=== PATIENT | female | born 1955 | race Caucasian/White ===

== ENCOUNTER 2020-11-21 10:54 | Outpatient (REF) | payer MEDICARE, SELFPAY ==
[2020-11-21 11:49] LABS: Estimated Average Glucose 137 mg/dL; Hemoglobin A1c % 6.4 %
[2020-11-21 12:21] LABS: Alanine Aminotransferase 14 U/L (0-31); Albumin Level 4.1 g/dL (3.5-5.0); Alkaline Phosphatase 83 U/L (39-117); Aspartate Amino Transferase 17 U/L (5-31); Bilirubin Direct 0.2 mg/dL (0.0-0.5); Bilirubin Total 0.4 mg/dL (0.0-1.0); Cholesterol 166 mg/dL; Glucose Fasting 141 mg/dL (60-99); HDL Cholesterol 49 mg/dL; LDL Cholesterol Calculated 89 mg/dl; Total Protein 6.9 g/dL (6.5-8.0); Triglycerides 144 mg/dL
[2020-11-21 12:37] LABS: Reflex LDLD? No
== END 2020-11-21 10:55 | disposition home or self-care (01) ==
LOC: HO.LNP 10:54
PROVIDERS: PCP Internal Medicine; Visit Provider Internal Medicine
DX: R73.03 Prediabetes (principal); E78.00 Pure hypercholesterolemia, unspecified
CPT/HCPCS: 80061; 80076; 82947; 83036

== ENCOUNTER 2020-12-29 10:25 | Outpatient (REF) | payer MEDICARE, SELFPAY ==
[2020-12-29 11:23] LABS: Potassium 3.9 mmol/L (3.3-5.1)
== END 2020-12-29 10:26 | disposition home or self-care (01) ==
LOC: HO.LNP 10:25
PROVIDERS: Visit Provider Internal Medicine
DX: E87.6 Hypokalemia (principal); I10 Essential (primary) hypertension; Z79.899 Other long term (current) drug therapy
CPT/HCPCS: 84132

== ENCOUNTER 2021-05-22 10:33 | Outpatient (REF) | payer MEDICARE, SELFPAY ==
[2021-05-22 11:15] LABS: MANUAL DIFF FLAG NO
[2021-05-22 11:24] LABS: Basophils Percent Auto 0.7 % (0-2); Eosinophils Absolute Auto 0.2 X10*3/uL (0.0-0.4); Eosinophils Percent Auto 3.9 % (0-4); Hematocrit 40.9 % (37-47); Hemoglobin 13.5 g/dl (12.0-16.0); Imm Gran Abs Auto 0.01 X10*3/uL (0.00-0.03); Imm Gran Pct Auto 0.2 % (0.0-0.4); Lymphocytes Absolute Auto 1.5 X10*3/uL (1.2-4.9); Lymphocytes Percent Auto 23.8 % (20-40); Mean Corpuscular Hemoglobin 29.3 pg (27.0-33.0); Mean Corpuscular Volume 88.7 fL (80-98); Mean Platelet Volume 10.3 fL (9.4-12.3); Monocytes Absolute Auto 0.6 X10*3/uL (0.1-1.2); Monocytes Percent Auto 9.9 % (2-11); Neutrophils Absolute Auto 3.7 X10*3/uL (2.0-8.3); Neutrophils Percent Auto 61.5 % (45-73); Platelet Count 286 X10*3/uL (160-400); Red Blood Count 4.61 X10*6/uL (4.20-5.50); Red Cell Distribution Width 12.9 % (11.0-16.0); White Blood Count 6.1 X10*3/uL (4.8-10.8)
[2021-05-22 12:08] LABS: Appearance Urine CLOUDY; Color Urine YELLOW; Glucose Urine UA NEG (NEG); Leukocyte Esterase Urine 3+ (NEG); Nitrite Urine NEG (NEG); Specific Gravity - Urine 1.015 (1.005-1.025); Urine Blood TRACE (NEG); Urine Ketones NEG (NEG); Urine Protein NEG (NEG-TRACE)
[2021-05-22 12:42] LABS: Creatinine Urine 94.73 mg/dL; Microalbum/Creatinine Ratio Ur 22.1 ug/mg cr
[2021-05-22 12:59] LABS: Estimated Average Glucose 166 mg/dL; Hemoglobin A1c % 7.4 %
[2021-05-22 13:40] LABS: Bacteria Urine 1+ /LPF; Mucus Urine 2+ /LPF; Squamous Epithelial Cell Urine 2+ /LPF; WBC Urine 30-49 /HPF (0-4)
[2021-05-22 14:36] LABS: Vitamin D 25-OH Total 37.7 ng/mL (>30)
[2021-05-22 14:37] LABS: Alanine Aminotransferase 18 U/L (0-31); Alkaline Phosphatase 92 U/L (39-117); Anion Gap 13 (12-20); Aspartate Amino Transferase 18 U/L (5-31); Bilirubin Total 0.3 mg/dL (0.0-1.0); Blood Urea Nitrogen 17 mg/dL (9-16); Calcium 9.9 mg/dL (8.4-10.2); Carbon Dioxide 27 mmol/L (22-29); Chloride 103 mmol/L (96-108); Cholesterol 155 mg/dL; Estimated Glomerular Filt Rate > 60; Glucose Fasting 172 mg/dL (60-99); HDL Cholesterol 42 mg/dL; LDL Cholesterol Calculated 79 mg/dl; Potassium 3.8 mmol/L (3.3-5.1); Sodium 139 mmol/L (135-145); Total Protein 6.8 g/dL (6.5-8.0); Triglycerides 174 mg/dL
[2021-05-22 15:03] LABS: Reflex LDLD? No
== END 2021-05-22 10:34 | disposition home or self-care (01) ==
LOC: HO.LNP 10:33
PROVIDERS: Visit Provider Internal Medicine
DX: Z00.00 Encounter for general adult medical examination without abnormal findings (principal); E78.00 Pure hypercholesterolemia, unspecified; R73.03 Prediabetes; I10 Essential (primary) hypertension; E55.9 Vitamin D deficiency, unspecified; E87.6 Hypokalemia
CPT/HCPCS: 80053; 80061; 81001; 81003; 82043; 82306; 83036; 85025

== ENCOUNTER 2021-11-20 11:06 | Outpatient (REF) | payer MEDICARE, SELFPAY ==
[2021-11-20 12:37] LABS: Alanine Aminotransferase 20 U/L (0-31); Albumin Level 4.2 g/dL (3.5-5.0); Alkaline Phosphatase 80 U/L (39-117); Aspartate Amino Transferase 19 U/L (5-31); Bilirubin Direct 0.2 mg/dL (0.0-0.5); Bilirubin Total 0.6 mg/dL (0.0-1.0); Cholesterol 156 mg/dL; HDL Cholesterol 35 mg/dL; LDL Cholesterol Calculated 67 mg/dl; Total Protein 7.3 g/dL (6.5-8.0); Triglycerides 270 mg/dL
[2021-11-20 13:13] LABS: Reflex LDLD? No
== END 2021-11-20 11:07 | disposition home or self-care (01) ==
LOC: HO.LNP 11:06
PROVIDERS: Visit Provider Internal Medicine
DX: E78.00 Pure hypercholesterolemia, unspecified (principal); I10 Essential (primary) hypertension
CPT/HCPCS: 80061; 80076

== ENCOUNTER 2022-05-25 10:51 | Outpatient (REF) | payer MEDICARE, SELFPAY ==
[2022-05-25 11:00] LABS: MANUAL DIFF FLAG NO
[2022-05-25 11:41] LABS: Basophils Absolute Auto 0.1 X10*3/uL (0.0-0.2); Basophils Percent Auto 0.9 % (0-2); Eosinophils Absolute Auto 0.2 X10*3/uL (0.0-0.4); Eosinophils Percent Auto 2.6 % (0-4); Hematocrit 41.4 % (37.0-47.0); Hemoglobin 13.6 g/dl (12.0-16.0); Imm Gran Abs Auto 0.01 X10*3/uL (0.00-0.03); Imm Gran Pct Auto 0.1 % (0.0-0.4); Lymphocytes Absolute Auto 1.9 X10*3/uL (1.2-4.9); Lymphocytes Percent Auto 27.4 % (20-40); Mean Corpuscular HGB Conc 32.9 g/dl (31.0-35.0); Mean Corpuscular Hemoglobin 29.1 pg (27.0-33.0); Mean Corpuscular Volume 88.7 fL (80.0-98.0); Mean Platelet Volume 9.9 fL (9.4-12.3); Monocytes Absolute Auto 0.5 X10*3/uL (0.1-1.2); Monocytes Percent Auto 7.7 % (2-11); Neutrophils Absolute Auto 4.3 x10*3/uL (2.0-8.3); Neutrophils Percent Auto 61.3 % (45-73); Platelet Count 314 X10*3/uL (160-400); Red Blood Count 4.67 X10*6/uL (4.20-5.50); Red Cell Distribution Width 12.8 % (11.0-16.0)
[2022-05-25 11:42] LABS: Appearance Urine Clear; Color Urine Yellow; Glucose Urine UA Negative (Negative); Leukocyte Esterase Urine Large (3+) (Negative); Nitrite Urine Negative (Negative); PH 6.5 (5.0-9.0); UMIC TRIGGER UA YES; Urine Blood Negative (Negative); Urine Ketones Negative (Negative); Urine Protein Negative (Neg-Trace)
[2022-05-25 11:48] LABS: Bacteria Urine 2+ (None Seen); Hyaline Casts Urine 0-2 /LPF (0-2); RBC Urine 0-2 /HPF (0-2)
[2022-05-25 11:51] LABS: Estimated Average Glucose 160 mg/dL; Hemoglobin A1c % 7.2 %
[2022-05-25 11:52] LABS: Alanine Aminotransferase 25 U/L (0-31); Albumin Level 4.2 g/dL (3.5-5.0); Alkaline Phosphatase 71 U/L (39-117); Anion Gap 18 (12-20); Aspartate Amino Transferase 22 U/L (5-31); Bilirubin Total 0.5 mg/dL (0.0-1.0); Blood Urea Nitrogen 18 mg/dL (9-16); Calcium 9.7 mg/dL (8.4-10.2); Carbon Dioxide 26 mmol/L (22-29); Chloride 100 mmol/L (96-108); Cholesterol 160 mg/dL; Estimated Glomerular Filt Rate > 60; Glucose Fasting 162 mg/dL (60-99); HDL Cholesterol 40 mg/dL; LDL Cholesterol Calculated 87 mg/dl; Potassium 3.7 mmol/L (3.3-5.1); Sodium 140 mmol/L (135-145); Total Protein 7.1 g/dL (6.5-8.0); Triglycerides 165 mg/dL
[2022-05-25 12:11] LABS: Creatinine Urine 53.59 mg/dL
== END 2022-05-25 10:52 | disposition home or self-care (01) ==
LOC: HO.LNP 10:51
PROVIDERS: Visit Provider Internal Medicine
DX: Z00.00 Encounter for general adult medical examination without abnormal findings (principal); E78.00 Pure hypercholesterolemia, unspecified; I10 Essential (primary) hypertension; E55.9 Vitamin D deficiency, unspecified; E11.9 Type 2 diabetes mellitus without complications; E87.6 Hypokalemia
CPT/HCPCS: 80053; 80061; 81001; 81003; 82043; 82306; 83036; 85025

== ENCOUNTER 2022-11-23 11:10 | Outpatient (REF) | payer MEDICARE, SELFPAY ==
[2022-11-23 12:08] LABS: Alanine Aminotransferase 19 U/L (0-31); Albumin Level 4.2 g/dL (3.5-5.0); Alkaline Phosphatase 71 U/L (39-117); Aspartate Amino Transferase 21 U/L (5-31); Bilirubin Direct 0.2 mg/dL (0.0-0.5); Bilirubin Total 0.5 mg/dL (0.0-1.0); Cholesterol 148 mg/dL; Glucose Fasting 148 mg/dL (60-99); HDL Cholesterol 40 mg/dL; LDL Cholesterol Calculated 76 mg/dl; Total Protein 6.9 g/dL (6.5-8.0); Triglycerides 162 mg/dL
[2022-11-23 19:45] LABS: Reflex LDLD? No
== END 2022-11-23 11:11 | disposition home or self-care (01) ==
LOC: HO.LNP 11:10
PROVIDERS: Visit Provider Internal Medicine
DX: Z13.89 Encounter for screening for other disorder (principal)
CPT/HCPCS: 80061; 80076; 82947

== ENCOUNTER 2023-07-08 10:46 | Outpatient (REF) | payer MEDICARE, SELFPAY ==
[2023-07-08 10:51] LABS: MANUAL DIFF FLAG NO
[2023-07-08 12:17] LABS: Basophils Percent Auto 0.7 % (0-2); Eosinophils Absolute Auto 0.1 X10*3/uL (0.0-0.4); Eosinophils Percent Auto 1.8 % (0-4); Hematocrit 41.2 % (37.0-47.0); Hemoglobin 13.5 g/dl (12.0-16.0); Imm Gran Abs Auto 0.02 X10*3/uL (0.00-0.03); Imm Gran Pct Auto 0.3 % (0.0-0.4); Lymphocytes Absolute Auto 1.6 X10*3/uL (1.2-4.9); Lymphocytes Percent Auto 26.8 % (20-40); Mean Corpuscular HGB Conc 32.8 g/dl (31.0-35.0); Mean Corpuscular Hemoglobin 29.5 pg (27.0-33.0); Mean Platelet Volume 9.9 fL (9.4-12.3); Monocytes Absolute Auto 0.4 X10*3/uL (0.1-1.2); Monocytes Percent Auto 6.7 % (2-11); Neutrophils Absolute Auto 3.9 x10*3/uL (2.0-8.3); Neutrophils Percent Auto 63.7 % (45-73); Platelet Count 342 X10*3/uL (160-400); Red Blood Count 4.58 X10*6/uL (4.20-5.50); Red Cell Distribution Width 12.7 % (11.0-16.0); White Blood Count 6.1 X10*3/uL (4.8-10.8)
[2023-07-08 12:20] LABS: Appearance Urine Clear; Color Urine Yellow; Glucose Urine UA Negative (Negative); Leukocyte Esterase Urine Large (3+) (Negative); Nitrite Urine Negative (Negative); Specific Gravity - Urine 1.015 (1.005-1.025); UMIC TRIGGER UACC YES; Urine Blood Negative (Negative); Urine Ketones Negative (Negative); Urine Protein Negative (Neg-Trace)
[2023-07-08 12:23] LABS: Bacteria Urine 1+ (None Seen); Hyaline Casts Urine 0-2 /LPF (0-2); RBC Urine 0-2 /HPF (0-2); UACC Culture Trigger YES; WBC Urine 21-50 /HPF (0-5)
[2023-07-08 12:31] LABS: Estimated Average Glucose 146 mg/dL; Hemoglobin A1C 149.9488 umol/L; Hemoglobin A1c % 6.7 % (<6.0)
[2023-07-08 12:50] LABS: Alanine Aminotransferase 16 U/L (0-31); Albumin Level 4.2 g/dL (3.5-5.0); Alkaline Phosphatase 62 U/L (39-117); Anion Gap 15 (12-20); Aspartate Amino Transferase 21 U/L (5-31); Bilirubin Total 0.3 mg/dL (0.0-1.0); Blood Urea Nitrogen 14 mg/dL (9-16); Calcium 9.6 mg/dL (8.4-10.2); Carbon Dioxide 27 mmol/L (22-29); Chloride 101 mmol/L (96-108); Cholesterol 144 mg/dL (<200); Estimated Glomerular Filt Rate > 60; Glucose Fasting 147 mg/dL (60-99); HDL Cholesterol 42 mg/dL (>40); LDL Cholesterol Calculated 76 mg/dL (<100); Potassium 3.8 mmol/L (3.3-5.1); Sodium 139 mmol/L (135-145); Total Protein 7.3 g/dL (6.5-8.0); Triglycerides 132 mg/dL (<150); Vitamin D 25-OH Total 52.7 ng/mL (>30)
[2023-07-08 12:55] LABS: Creatinine Urine 72.22 mg/dL; Microalbum/Creatinine Ratio Ur 31.8 ug/mg cr (<30)
== END 2023-07-08 10:47 | disposition home or self-care (01) ==
LOC: HO.LNP 10:46
PROVIDERS: Visit Provider Internal Medicine
DX: Z00.00 Encounter for general adult medical examination without abnormal findings (principal); E78.00 Pure hypercholesterolemia, unspecified; E55.9 Vitamin D deficiency, unspecified; E11.9 Type 2 diabetes mellitus without complications; I10 Essential (primary) hypertension; R82.90 Unspecified abnormal findings in urine
CPT/HCPCS: 80053; 80061; 81001; 82043; 82306; 82570; 83036; 85025; 87086

== ENCOUNTER 2024-01-09 11:52 | Outpatient (REF) | payer MEDICARE, SELFPAY ==
[2024-01-09 12:37] LABS: Estimated Average Glucose 157 mg/dL; Hemoglobin A1c % 7.1 % (<6.0)
[2024-01-09 12:42] LABS: Alanine Aminotransferase 15 U/L (0-31); Albumin Level 4.1 g/dL (3.5-5.0); Alkaline Phosphatase 63 U/L (39-117); Aspartate Amino Transferase 19 U/L (5-31); Bilirubin Direct 0.3 mg/dL (0.0-0.5); Bilirubin Total 0.4 mg/dL (0.0-1.0); Cholesterol 143 mg/dL (<200); Glucose Fasting 146 mg/dL (60-99); HDL Cholesterol 44 mg/dL (>40); LDL Cholesterol Calculated 73 mg/dL (<100); Total Protein 7.3 g/dL (6.5-8.0); Triglycerides 133 mg/dL (<150)
[2024-01-09 12:57] LABS: Reflex LDLD? No
== END 2024-01-09 11:53 | disposition home or self-care (01) ==
LOC: HO.LNP 11:52
PROVIDERS: Visit Provider Internal Medicine
DX: E11.9 Type 2 diabetes mellitus without complications (principal); E78.00 Pure hypercholesterolemia, unspecified
CPT/HCPCS: 80061; 80076; 82947; 83036

== ENCOUNTER 2024-07-14 11:57 | Outpatient (REF) | payer MEDICARE, SELFPAY ==
[2024-07-14 12:06] LABS: MANUAL DIFF FLAG NO
[2024-07-14 12:36] LABS: Appearance Urine Clear; Basophils Absolute Auto 0.1 X10*3/uL (0.0-0.2); Basophils Percent Auto 0.8 % (0-2); Color Urine Yellow; Eosinophils Absolute Auto 0.2 X10*3/uL (0.0-0.4); Eosinophils Percent Auto 2.7 % (0-4); Glucose Urine UA Negative (Negative); Hematocrit 38.5 % (37.0-47.0); Hemoglobin 12.7 g/dl (12.0-16.0); Imm Gran Abs Auto 0.01 X10*3/uL (0.00-0.03); Imm Gran Pct Auto 0.2 % (0.0-0.4); Leukocyte Esterase Urine Moderate (2+) (Negative); Lymphocytes Absolute Auto 1.8 X10*3/uL (1.2-4.9); Lymphocytes Percent Auto 27.4 % (20-40); Mean Corpuscular Hemoglobin 29.2 pg (27.0-33.0); Mean Corpuscular Volume 88.5 fL (80.0-98.0); Monocytes Absolute Auto 0.5 X10*3/uL (0.1-1.2); Monocytes Percent Auto 8.2 % (2-11); Neutrophils Percent Auto 60.7 % (45-73); Nitrite Urine Negative (Negative); Platelet Count 317 X10*3/uL (160-400); Red Blood Count 4.35 X10*6/uL (4.20-5.50); Red Cell Distribution Width 12.6 % (11.0-16.0); Specific Gravity - Urine 1.015 (1.005-1.025); UMIC TRIGGER UACC YES; Urine Blood Negative (Negative); Urine Ketones Negative (Negative); Urine Protein Negative (Neg-Trace); White Blood Count 6.6 X10*3/uL (4.8-10.8)
[2024-07-14 12:45] LABS: Estimated Average Glucose 166 mg/dL; Hemoglobin A1C 193.8343 umol/L; Hemoglobin A1c % 7.4 % (<6.0); Total Hemoglobin (HGBA1C) 3383.3437 umol/L
[2024-07-14 12:46] LABS: Bacteria Urine 1+ (None Seen); Hyaline Casts Urine 0-2 /LPF (0-2); RBC Urine 0-2 /HPF (0-2); WBC Urine 0-5 /HPF (0-5)
[2024-07-14 12:47] LABS: Alanine Aminotransferase 17 U/L (0-31); Albumin Level 4.2 g/dL (3.5-5.0); Alkaline Phosphatase 70 U/L (39-117); Anion Gap 15 (12-20); Aspartate Amino Transferase 29 U/L (5-31); Bilirubin Total 0.3 mg/dL (0.0-1.0); Blood Urea Nitrogen 19 mg/dL (9-16); Calcium 9.9 mg/dL (8.4-10.2); Carbon Dioxide 27 mmol/L (22-29); Chloride 99 mmol/L (96-108); Cholesterol 147 mg/dL (<200); Estimated Glomerular Filt Rate > 60; Glucose Fasting 160 mg/dL (60-99); HDL Cholesterol 41 mg/dL (>40); LDL Cholesterol Calculated 72 mg/dL (<100); Potassium 3.3 mmol/L (3.3-5.1); Sodium 138 mmol/L (135-145); Total Protein 7.2 g/dL (6.5-8.0); Triglycerides 173 mg/dL (<150)
[2024-07-14 13:26] LABS: Creatinine Urine 81.82 mg/dL; Microalbum/Creatinine Ratio Ur 14.6 ug/mg cr (<30)
[2024-07-19 07:13] LABS: VITAMIN D (1,25 OH) D3 28 pg/mL; Vit D (1,25-Dihydroxy) Total 28 pg/mL (18-72); Vitamin D (1,25 OH) D2 <8 pg/mL
== END 2024-07-14 11:58 | disposition home or self-care (01) ==
LOC: HO.LNP 11:57
PROVIDERS: Visit Provider Internal Medicine
DX: E78.00 Pure hypercholesterolemia, unspecified (principal); E55.9 Vitamin D deficiency, unspecified; I10 Essential (primary) hypertension; E11.9 Type 2 diabetes mellitus without complications; E87.6 Hypokalemia
CPT/HCPCS: 80053; 80061; 81001; 82043; 82570; 82652; 83036; 85025

== ENCOUNTER 2025-01-11 12:19 | Outpatient (REF) | payer MEDICARE, SELFPAY ==
--- OUTSIDE RECORDS SUMMARY | 2025-01-11 12:47 | XMS_ITS ---
Author Organization Anthony Rivera MD Address [address] [place] [phone] Care Team Providers Care Pipe Fitter Name Role Phone Anthony Rivera Primary Care Provider [phone] Allergies Allergen (clinical drug ingredient) Drug/Non Drug [...] Rivera MD [address] [place], [place] [phone] 07/20/2024 Anthony Rivera Essential hypertension I10 ; [...] 6 Months, Reason: dm Provider Name:Anthony moeller, 01/18/2025 10:00:00 AM, [address], [address], [place], [place], [phone], Provider Name:Anthony Tapia ier, 07/16/2025 07:30:00 AM, [address] [facility], [address], [place], [place], [phone], Provider Name:Anthony Tapia janeyr, 07/23/2025 11:00:00 AM, [facility], [address], [place], [phone], Progress Notes * NEAL SYLVESTERDOB:1955 ( 68 yo F)Acc No.[id number]:07/20/2024 Progress Notes Patient:?NEAL SYLVESTER Provider:?Anthony Rivera MD :1955???Age:68 Y???Sex:Female D ate:07/20/2024 Address:[address] [place] [address] Subjective: * Chief Complaints: * ???ANNUAL EXAMC/o right hip pain * HPI: ???Depression Screening:?PHQ-9?Little interest or pleasure in doing things?Not at all,?Feeling down, depressed, or hopeless?Not at all,?Trouble falling or staying asleep, or sleeping too much?Not at all,?Feeling tired or having little energy?Not at all,?Poor appetite or overeating?Not at all,?Feeling bad about yourself or that you are a failure, or have let yourself or your family down?Not at all,?Trouble concentrating on things, such as reading the newspaper or watching television?Not at all,?Moving or speaking so slowly that other people could have noticed; or the opposite, being so fidgety or restless that you have been moving around a lot more than usual?Not at all,?Thoughts that you would be better off or of hurting yourself in some way?Not at all,?Total Score?0.?Communication Needs:?Communication Needs?Does the patient have a hearing impairment?No,?Does the patient have a vision impairment??Yes,?If yes, what is the vision impairment??Glasses,?Does the patient have a cognition impairment??No.?Fall Risk:?History?Have you had any falls with injury in the past year??No,?Have you had two or more falls in the past year??No.?SDOH Questions:?SDOH Questions?In the past year have you been worried about losing housing??No,?In the past year have you or any family members you live with been unable to get any of the following when it was really needed? Check all that apply:?None.?Symptom(s):? patient is a 68 yo female here for annual visit with review of recent labs and follow up of chronc issues, has some pain in right hip. * ROS:?General/Constitutional:?Change in appetite?denies.?Chills?denies.?Fever?denies.?Ophthalmologic:?Blurred vision?denies.?Discharge?denies.?Pain?denies.?ENT:?Decreased hearing?denies.?Sore throat?denies.?Swollen glands?denies.?Endocrine:?Cold intolerance?denies.?Excessive thirst?denies.?Heat intolerance?denies.?Weight loss?denies.?Respiratory:?Cough?denies.?Shortness of breath at rest?denies.?Shortness of breath with exertion?denies.?Wheezing?denies.?Cardiovascular:?Chest pain at rest?denies.?Chest pain with exertion?denies.?Irregular heartbeat?denies.?Shortness of breath?denies.?Gastrointestinal:?Abdominal pain?denies.?Change in bowel habits?denies.?Diarrhea?denies.?Nausea?denies.?Rectal bleeding?denies.?Vomiting?denies .?Genitourinary:?Blood in urine?denies.?Difficulty urinating?denies.?Frequent urination?denies.?Urinary incontinence?Denies.?Musculoskeletal:?Painful joints?denies.?Weakness?denies.?Skin:?Dry skin?denies.?Itching?denies.?Denies?Mole(s),? changes in moles, new moles or any lesions of concern.?Denies?Photosensitivity.?Rash?denies.?Neurologic:?Dizziness?denies.?Fainting?denies.?Headache?denies.? * Medical History:? * Surgical History:? * Hospitalization/Major Diagno stic Procedure:? * Family History:?Father: dece ased 48 yrs, diagnosed with Cancer.?Mother: 93 yrs, diagnosed with Hypertension.?1 sister(s) - healthy. 2 daughter(s) . .? Father- Colon Cancer Mother- natural causes, Denies mental health/substance abuse family history, No pertinent family medical history, Denies mental health/substance abuse family history, No pertinent family medical history. * Social History:?Tobacco Use:?Tobacco Use/Smoking?Patient is a?nonsmoker,?Additional Findings: Tobacco Non-User?Current non-smoker, currently using no form of tobacco.?Drugs/Alcohol:?Alcohol Screen?Did you have a drink containing alcohol in the past year??No,?Points?0,?Interpretation?Negative.?Miscellaneous:?Caffeine: yes, frequency: 1 tea in am. Children: yes. Community involvements: yes, belongs to worship group. no Exercise. Housing: owning. Living with: spouse. Marital status: . Occupation: retired. Pets: cats: x2. no Travel outside of the [place]. * Medications:?TakingLatanopro st 0.005 % Solution 1 drop into affected [...] TABLET TWICE DAILY WITH MEALS Losartan Potassium-HCTZ 100- 25 MG Tablet TAKE 1 TABLET ONCE DAILY [...] reviewed and reconciled with the patient * Allergies:?Amoxicillin: diar trevor - Side EffectsPenicillin G Sodium: diarrhea - Side EffectsLisinopril: cough - Side Effectsyes[Allergies Verified] Objective: * Vitals:?Ht: 62.5, Wt:151, BM I:27.18, BP:122/70 weight is up 6 pounds since 01-14-24. * ???Past Orders: ???Lab:Comprehensive [place]. P chet Fast (Order Date - 07/14/2024) (Collection Date - 07/14/2024) ? Value Reference Range ?Sodium 138 135-145 - mmo l/L ?Bilirubin Total 0.3 0.0- 1.0 - mg/dL ?Aspartate Amino Transferase 29 5-31 - U/L ?Alanine Aminotransferase 17 0-31 - U/L ?Total Protein 7.2 6.5-8. 0 - g/dL ?Albumin Level 4.2 3.5-5. 0 - g/dL ?Alkaline Phosphatase 70 39-117 - U/L ?Potassium 3.3 3.3-5.1 - mmol/L ?Chloride 99 96-108 - mm ol/L ?Carbon Dioxide 27 22-29 - mmol/L ?Anion Gap 15 12-20 - ?Blood Urea Nitrogen 19 H 9-16 - mg/dL ?Creatinine 0.78 0.5-1.4 - mg/dL ?Estimated Glomerular Filt Rate > 60 - ?Glucose Fasting 160 H 60-9 9 - mg/dL ?Calcium 9.9 8.4-10.2 - m g/dL ???Lab:Lipid Panel (Order Da 07/14/2024) (Collection Date - 07/14/2024) ? Value Reference Range ?Triglycerides 173 H <150 - mg/dL ?Cholesterol 147 <200 - m g/dL ?LDL Cholesterol Calculated 72 <100 - mg/dL ?HDL Cholesterol 41 >40 - mg/dL ???Lab:Hemoglobin A1c (Order Date - 07/14/2024) (Collection Date - 07/14/2024) ? Value Reference Range ?Hemoglobin A1c % 7.4 H <6. 0 - % ?Estimated Average Glucose 166 - mg/dL ???Lab:Microalbumin, Random (Order 07/14/2024) (Collection Date - 07/14/2024) ? Value Reference Range ?Creatinine Urine 81.82 - m g/dL ?Microalbumin Urine 12.0 - mg/L ?Microalbum Creatinin e Ratio Ur 14.6 <30 - ug/mg cr ???Lab:UA ClnCatch+Micro w/r flx Cult (Order Date - 07/14/2024) (Collection Date - 07/14/2024) ? Value Reference Range ?Color Urine Yellow - ?Appearance Urine Clear - ?PH 6.0 5.0-9.0 - ?Glucose Urine UA Negative Neg ative - mg/dL ?Urine Blood Negative Negative - ?Specific [place] - Urine 1.015 1.005-1.025 - ?Urine Protein Negative Neg-Tr hugh - mg/dL ?Urine Ketones Negative Negati ve - mg/dL ?Nitrite Urine Negative Negati ve - ?Leukocyte Esterase Urine Moderate (2+) A Negative - ?RBC Urine 0-2 0-2 - /HPF ?WBC Urine 0-5 0-5 - /HPF ?Squamous Epithelial Cell Urine 3-5 0-2 - /HPF ?Bacteria Urine 1+ None Seen - ?Hyaline Casts Urine 0-2 0-2 - /LPF ???Lab:Complete Blood Count Auto Diff (Order Date - 07/14/2024) (Collection Date - 07/14/2024) ? Value Reference Range ?White Blood Count 6.6 4. 8-10.8 - X10*3/uL ?Red Blood Count 4.35 4.20 -5.50 - X10*6/uL ?Hemoglobin 12.7 12.0-16.0 - g/dl ?Hematocrit 38.5 37.0-47.0 - % ?Mean Corpuscular Volume 88.5 80.0-98.0 - fL ?Mean Corpuscular Hemoglobin 29.2 27.0-33.0 - pg ?Mean Corpuscular HGB Conc 33.0 31.0-35.0 - g/dl ?Red Cell Distributio n Width 12.6 11.0-16.0 - % ?Platelet Count 317 160-4 00 - X10*3/uL ?Mean Platelet Volume 10.0 9.4-12.3 - fL ?Neutrophils Percent Auto 60.7 45-73 - % ?Imm Gran Pct Auto 0.2 0. 0-0.4 - % ?Lymphocytes Percent Auto 27.4 20-40 - % ?Monocytes Percent Auto 8.2 2-11 - % ?Eosinophils Percent Auto 2.7 0-4 - % ?Basophils Percent Auto 0.8 0-2 - % ?NRBC Pct Auto 0.0 0.0-0. 2 - /100WBC ?Neutrophils Absolute Auto 4.0 2.0-8.3 - x10*3/uL ?Imm Gran Abs Auto 0.01 0. 00-0.03 - X10*3/uL ?Lymphocytes Absolute Auto 1.8 1.2-4.9 - X10*3/uL ?Monocytes Absolute Auto 0.5 0.1-1.2 - X10*3/uL ?Eosinophils Absolute Auto 0.2 0.0-0.4 - X10*3/uL ?Basophils Absolute Auto 0.1 0.0-0.2 - X10*3/uL ?NRBC Abs Auto 0.000 0.0-0. 012 - X10*3/uL * Examination: ???General Examination: ?GENERAL APPEARANCE:?well developed, well nourished, in no acute distress.?HEAD:?normocephalic, atraumatic.?EYES:?pupils equal, round, reactive to light and accommodation, sclera non-icteric.?EARS:?normal.?ORAL CAVITY:?mucosa moist.?THROAT:?clear.?NECK/THYROID:?neck supple, full range of motion, no cervical lymphadenopathy, no bruits.?SKIN:?warm and dry, no suspicious lesions.?HEART:?regular rate and rhythm, S1, S2 normal, no murmurs.?LUNGS:?clear to auscultation bilaterally.?BREASTS:?done by cyberathlete.?ABDOMEN:?soft, nontender, nondistended, bowel sounds present, normal, no organomegaly , no masses palpable.?RECTAL EXAM:?done by cyberathlete.?FEMALE GENITOURINARY:?done by cyberathlete.?EXTREMITIES:?no clubbing, cyanosis, or edema.?NEUROLOGIC:?nonfocal, motor strength normal upper and lower extremities, sensory exam intact.? Assessment: * Assessment: 1.?Annual physical exam - Z0 0.00 (Primary)?2.?Essential hypertension - I10?3.?Type 2 diabetes mellitus without complication, with no history of insulin use - E11.9?4.?Vitamin D deficiency - E55.9?5.?Depression screening - Z13.31? Plan: * Treatment: 2.?Essential hypertension? Notes: bp doing well today, will continue current regiment and will continue to monitor?? 3.?Type 2 diabetes mellitus without complication, with no history of insulin use? Notes: a1c is going up due to eating poorly, will continue to monitor?? 4.?Vitamin D deficiency? Notes: is doing well but is going to start vit d since winter is here?? 5.?Depression screening? Notes: negative screen?? * Procedure Codes:? * Follow Up:?6 Months (Reason: dm) * * Sign off status: Completed true * Provider:?Anthony Rivera MD Date:?09/19/2023 Generated for Hill veronica/Valentino/Lexiransmitting on:?01/11/2025 12:46 PM EDT History and Physical Notes * HPI (History [...] patient have a vision impairmen t?: Yes ?If yes, what is the vision impairment?: Glasses Does the patient have a cognition impair ment?: No Examination Category Sub-Category Detail Notes Category Not es General Examination GENERAL APPEARANCE: well dev eloped, well nourished, in no acute distress HEAD: normocephalic, atrau matic EYES: pupils equal, round, reactive to light and accommodation, sclera non- icteric EARS: normal THROAT: clear NECK/THYROID: neck supple, [...] cyanosi s, or edema BREASTS: done by cyberathlete RECTAL EXAM: done by cyberathlete FEMALE GENITOURINARY: done by cyberathlete ORAL CAVITY: mucosa moist
--- OUTSIDE RECORDS SUMMARY | 2025-01-11 12:47 | XMS_ITS ---
Author Organization Anthony Rivera MD Address [address] [place] [phone] Care Team Providers Care Audio Visual Specialist Name Role Phone Anthony Rivera Primary Care Provider REASON FOR VISIT FASTING LIPIDS Encounters Encounter Location Date Provider Diagnosis Anthony Rivera MD [address] [place] [phone] 01/11/2025 Anthony Rivera Hypercholesteremia E 78.00 and Type 2 diabetes mellitus without complication, with no history of insulin use E11.9 Assessments Encounter Date Diagnosis (ICD Code) Assessment Notes Treatment Notes Treatment Clinical Notes Section Notes 01/11/2025 Hypercholesteremia (ICD-10 - E78.00) 01/11/2025 Type 2 diabetes mellitus without complication, with no history of insulin use (ICD-10 - E11.9) Plan Of Treatment Pending Test Test Name Order Date Liver Panel 01/11/2025 Glucose Fasting 01/11/2025 Lipid Panel with Reflex 01/11/2025 Hemoglobin A1c 01/11/2025 Next Appt Details Provider Name:Anthony moeller, 01/18/2025 10:00:00 AM, [address] [place] [address], [address] [place] [address], [phone], Provider Name:Anthony moeller, 07/16/2025 07:30:00 AM, [address], [address], [place], [place], [phone], Provider Name:Anthony Weiner Willei ier, 07/23/2025 11:00:00 AM, [address] [facility], [address], [place], [place], [phone], Progress Notes * NEAL SYLVESTERDOB:1955 ( 69 yo F)Acc No.[id number]:01/11/2025 Progress Note Patient:?NEAL SYLVESTER Provider:?Anthony Rivera MD :1955???Age:69 Y???Sex:Female D ate:01/11/2025 Address:[address] [place], [place] [phone] Subjective: * Chief Complaints: * ???1. FASTING LIPIDS. * Medical History:? Objective: * Vitals:? Assessment: * Assessment: 1.?Hypercholesteremia - E78. 00 (Primary)???2.?Type 2 diabetes mellitus without complication, with no history of insulin use - E11.9??? Plan: * Treatment: 2.?Type 2 diabetes mellitus without complication, with no history of insulin use?LAB: Liver Panel ?LAB: Glucose Fasting ?LAB: Lipid Panel with Reflex ?LAB: Hemoglobin A1c * Procedure Codes:?62687 VENIP UNCT, ROUTINE* * * The named appointment provid er may or may not be the originator of this progress note, and it is not deemed complete until electronically signed by the appointment provider. Sign off status: Pending * Provider:?Anthony Rivera MD Date:?0 01/11/2025 Generated for Hill veronica/Valentino/Edmarsmitting on:?01/11/2025 12:47 PM EDT
--- OUTSIDE RECORDS SUMMARY | 2025-01-11 12:47 | XMS_ITS | Patient Health Record ---
Author Organization Anthony Rivera MD Address [address] [place] [phone] Care Team Providers Care Boom Operator Name Role Phone Anthony Rivera Primary Care Provider [phone] Allergies Allergen (clinical drug ingredient) Drug/Non Drug Allergy documented on EMR Reaction Allergy Type Onset Date Status penicillin G Penicillin G Sodium diarrhea Drug Allergy Active lisinopril Lisinopril cough Drug Allergy Activ e amoxicillin Amoxicillin diarrhea Drug Allergy Act irina Results Component Value Reference Range Notes Complete Blood Count Auto Di ff Reviewed date:07/15/2024 04:22:31 PM Interpretation: Performing Lab:[facility], [address] [place] [phone] Notes/Report: White Blood Count 6.6 4.8-10.8 X10*3/uL [...] NRBC Abs Auto 0.000 0.0-0.012 X10*3/uL Comprehensive [place]. Panel Fa st Reviewed date:07/14/2024 12:50:26 PM Interpretation: Performing Lab:[facility], [address] [place] [phone] Notes/Report: Sodium 138 135-145 mmol/L Potassium 3.3 [...] Panel Reviewed date:07/14/2024 12:52:23 PM Interpretation: Performing Lab:[facility], [address] [place] [phone] Notes/Report: Triglycerides 173 <150 mg/dL Desirable Triglyceride: [...] Random Reviewed date:07/14/2024 03:08:17 PM Interpretation: Performing Lab:[facility], [address] [place] [phone] Notes/Report: Creatinine Urine 81.82 Microalbumin Urine 12.0 Microalbum/Creatinine Ratio Ur 14.6 <30 ug/mg cr Albumin/Creatinine Ratio Reference Ranges: Normal: < 30 ug/mg creatinine Microalbuminuria: 30 - 300 ug/mg creatinine Clinical Albuminuria: > 300 ug/mg creatinine Hemoglobin A1c Reviewed date:07/14/2024 12:50:41 PM Interpretation: Performing Lab:[facility], [address] [place] [phone] Notes/Report: Hemoglobin A1c % 7.4 <6.0 % [...] average glucose, using the formula of the L7N-Uvgnnqx Average Glucose study (ADAG), Diabetes Care, Vol.31,#8, 2007 UA ClnCatch+Micro w/rflx Cul t Reviewed date:07/15/2024 04:17:30 PM Interpretation: Performing Lab:[address] [phone] Notes/Report: Urine, Clean Catch Color Urine Yellow Appearance Urine Clear PH 6.0 5.0-9.0 Glucose Urine UA Negative Negative mg/dL Urine Blood Negative Negative Specific [employer] - Urine 1.015 1.005-1.025 Urine Protein Negative Neg-Trace mg/dL Urine Ketones Negative Negative mg/dL Nitrite Urine Negative Negative Leukocyte Esterase Urine Moderate (2+) Negative RBC Urine 0-2 0-2 /HPF WBC Urine 0-5 0-5 /HPF Squamous Epithelial Cell Urine 3-5 0-2 /HPF Bacteria Urine 1+ None Seen Hyaline Casts Urine 0-2 0-2 /LPF Vitamin D 1,25 OH LC/MS/MS Reviewed date:07/19/2024 04:40:29 PM Interpretation: Performing Lab:[address] [phone] Notes/Report: Vit D (1,25-Dihydroxy) Total 28 18-72 pg/mL VITAMIN D (1,25 OH) D3 28 Vitamin D (1,25 OH) D2 <8 Vitamin D3, 1,25(OH)2 indicates both endogenous production and supplementation. Vitamin D2, 1,25(OH)2 is an indicator of exogenous sources, such as diet or supplementation. Interpretation and therapy are based on measurement of Vitamin D,1,25(OH)2, Total. This test was developed and its analytical performance characteristics have been determined by [facility] [place], [place]. It has not been cleared or approved by the FDA. This assay has been validated pursuant to the CLIA regulations and is used for clinical purposes. THIS TEST WAS PERFORMED AT: [facility] [address] [phone] EMREDITH SEVILLA MD,PHD Jayne Orozco Reviewed date:01/11/2025 12:26:43 PM Interpretation: Performing Lab:[address] [phone] Notes/Report: Hold Gold See Note Specimen held untested for 24 hours; Call to request Chemistry testing. Reason For Referral No Information Medications Medication SIG (Take, Route, Frequency, Duration) Notes Start Date End Date Status Premarin 0.625 MG/GM Vaginal Not-Taking Losartan Potassium-HCTZ 100-25 MG TAKE 1 TABLET ONCE DAILY for 90 Active metFORMIN HCl 500 MG TAKE 1 TABLET TWICE DAILY WITH MEALS for 90 Active Allergy Relief D 10-240 MG 1 tablet as needed Orally Once a day Active Combigan 0.2-0.5 % 1 drop into affected eye Ophthalmic Twice a day Active Atorvastatin Calcium 40 MG TAKE 1 TABLET ONCE DAILY for 90 Active Zantac 150 MG 1 tablet at bedtime Orally Once a day Active Klor-Con M10 10 MEQ TAKE 1 TABLET ONCE DAILY WITH FOOD for 90 Active Latanoprost 0.005 % 1 drop into affected eye in the evening Ophthalmic Once a day Active Immunizations Vaccine Route Administration Date Status Comme nts Fluarix Quadrivalent IM Intramuscular 09/06/2016 Administe red Fluarix Quadrivalent IM Intramuscular 05/21/2017 Administe red TDaP Unknown 12/03/2010 Administered Fluarix Quadrivalent IM Intramuscular 05/05/2019 Administe red Fluarix Quadrivalent IM Intramuscular 06/03/2020 Administe red SARS-COV-2 Pfizer Unknown 12/31/2020 Administered SARS-COV-2 Pfizer Unknown 01/21/2021 Administered Influenza High Dose IM Intramuscular 06/08/2021 Administer ed SARS-COV-2 Pfizer Unknown 09/07/2021 Administered Fluarix Quadrivalent IM Intramuscular 05/25/2022 Administe red Influenza High Dose IM Intramuscular 07/08/2023 Administer ed Influenza High Dose IM Intramuscular 06/11/2024 Administer ed Fluarix Quadrivalent Unknown 11/07/2018 Refused PPSV23 (Pnemovax) Unknown 11/07/2018 Refused PPSV23 (Pnemovax) Unknown 11/09/2019 Refused Prevnar 13 Unknown 11/09/2019 Refused Prevnar 13 Unknown 11/12/2019 Refused PPSV23 (Pnemovax) Unknown 2020 Refused Social History Tobacco Use: Social History Observation [...] ast year? No Points 0 Interpretation Negative Problems Problem Type SNOMED Code ICD Code Onset Dates Problem Status W/U Status Risk Notes Problem 78205081 Hypokalemia (E87.6) Active confirmed Problem Vitamin D deficiency (09504298) Vitamin D deficiency (E55.9) Active confirmed Problem Other specified menopausal and perimenopausal disorders (N95.8) Active confirmed Problem 38222088 Essential hypertension (I10) Active confirmed Problem 12982990 Hypercholesterem ia (E78.00) Active confirmed Problem 157003804 Type 2 diabetes mellitus without complication, with no history of insulin use (E11.9) Active confirmed Vital Signs Blood pressure diastolic 70 mm Hg 07/20/2024 gerson ght is up 6 pounds since 01-14-24 Height 62.5 in 07/20/2024 weight is up 6 pounds since 01-14-24 Blood pressure systolic 122 mm Hg 07/20/2024 weig ht is up 6 pounds since 01-14-24 Weight 151 lbs 07/20/2024 weight is up 6 pounds since 01-14-24 BMI 27.18 kg/m2 07/20/2024 weight is up 6 pounds since 01-14-24 Encounters Encounter Location Date Provider Diagnosis Anthony Rivera MD [address] [place] [id number] 06/11/2024 Anthony Rivera Encounter for immunization Z23 Anthony Rivera MD [address] [place] [address] Drive [address] [place] [id number] 07/14/2024 Anthony Rivera Hypercholesteremia E 78.00 ; Vitamin D deficiency E55.9 ; Essential hypertension I10 ; Type 2 diabetes mellitus without complication, with no history of insulin use E11.9 and Hypokalemia E87.6 Anthony Rivera MD [address] [place] [id number] 01/11/2025 Anthony Rivera Hypercholesteremia E 78.00 and Type 2 diabetes mellitus without complication, with no history of insulin use E11.9 Anthony Rivera MD [address] [place] [id number] 01/14/2024 Anthony Rivera Type 2 diabetes fab itus without complication, with no history of insulin use E11.9 ; Essential hypertension I10 and Hypercholesteremia E78.00 Anthony Rivera MD [address] [place], [place] [phone] 07/20/2024 Anthony Rivera Essential hypertensi on I10 ; Annual physical exam Z00.00 ; Type 2 diabetes mellitus without complication, with no history of insulin use E11.9 ; Vitamin D deficiency E55.9 and Depression screening Z13.31 Assessments Encounter Date Diagnosis (ICD Code) Assessment Notes Treatment Notes Treatment Clinical Notes Section Notes 06/11/2024 Encounter for immunization (ICD-10 - Z23) 07/14/2024 Hypercholesteremia (ICD-10 - E78.00) 07/14/2024 Vitamin D deficiency (ICD-10 - E55.9) 01/11/2025 Hypercholesteremia (ICD-10 - E78.00) 01/14/2024 Type 2 diabetes mellitus without complication, with no history of insulin use (ICD-10 - E11.9) doing well/continue on present meds 01/14/2024 Essential hypertensi on (ICD-10 - I10) stable, will continue current regiment 07/20/2024 Essential hypertensi on (ICD-10 - I10) bp doing well today, will continue current regiment and will continue to monitor 07/20/2024 Annual physical exam (ICD-10 - Z00.00) labs reviewed and discussed with patient 07/14/2024 Essential hypertensi on (ICD-10 - I10) 01/11/2025 Type 2 diabetes mellitus without complication, with no history of insulin use (ICD-10 - E11.9) 01/14/2024 Hypercholesteremia (ICD-10 - E78.00) stable, will continue current regiment 07/20/2024 Type 2 diabetes mellitus without complication, with no history of insulin use (ICD-10 - E11.9) a1c is going up due to eating poorly, will continue to monitor 07/14/2024 Type 2 diabetes mellitus without complication, with no history of insulin use (ICD-10 - E11.9) 07/20/2024 Vitamin D deficiency (ICD-10 - E55.9) is doing well but is going to start vit d since winter is here 07/14/2024 Hypokalemia (ICD-10 - E87.6) 07/20/2024 Depression screening (ICD-10 - Z13.31) negative screen Plan Of Treatment Pending Test Test Name Order Date Liver Panel 01/11/2025 Glucose Fasting 01/11/2025 Lipid Panel with Reflex 01/11/2025 Hemoglobin A1c 01/11/2025 Next Appt Details Provider Name:Anthony Regine Shaunnalester ier, 01/18/2025 10:00:00 AM, [address] [place] [address], [address], [phone], Provider Name:Anthony Regine Willie ier, 07/16/2025 07:30:00 AM, [address] [place] [address], [address], [phone], Provider Name:Anthony Weiner Willie ier, 07/23/2025 11:00:00 AM, [address] [place] [address], [address], [phone], Insurance Providers Payer Name Payer Address Payer Phone Subscriber Number Group Number Insured Name Patient Relationship to Insured Coverage Start Date Coverage End Date [facility] [address] [place], [place] [phone] [id number] NEAL SYLVESTER Self - patient is the insured MEDICARE [employer] [address] [place] [address] [id number] NEAL SYLVESTER Self - patient is the insured Medical (General) History Medical History History ICD Code colonoscopy 2014; 08/20/17 r efuses to have another colonoscopy; 03/03/18 refused colonoscopy COLOGARDNEG 2020 cologard neg 2023 Prediabetes R73.03 Prediabetes
--- OUTSIDE RECORDS SUMMARY | 2025-01-11 12:47 | XMS_ITS | Clinical Summary ---
Author Organization [facility] ity Address [address] [place] [address] Care Team Providers Care Machine Molder Name Role Phone Unavailable Primary Care Provider Unavailabl e Social History Tobacco Use Types Packs/Day Years Used Date Smoking Tobacco: Never Assessed Comments Unknown Sex and Gender Information Value Date Recorded Sex Assigned at Not on file Legal Sex Female 4:03 PM EST Gender Identity Not on file Sexual Orientation Not on file Plan of Treatment Health Maintenance Due Date Last Done Comments Breast Cancer Screening 1955 DTaP,Tdap,and Td Vaccines (1 - Tdap) 1972 Pneumococcal Vaccine: 50+ Ye ars (1 of 1 - PCV) 11/26/2003 Zoster Vaccines (1 of 2) 11/26/2003 COVID-19 Vaccine ( - 2023-2 5 season) 2024 Influenza Vaccine (Season Ended) 2025 RSV Immunization Adult Patie nts (1 - 1-dose 75+ series) 2028 HIB Vaccines Aged Out No longer eligi ble based on patient's age to complete this topic HPV Vaccines Aged Out No longer eligi ble based on patient's age to complete this topic Hepatitis A Vaccines Aged Out No long er eligible based on patient's age to complete this topic Hepatitis B Vaccines Aged Out No long er eligible based on patient's age to complete this topic IPV Vaccines Aged Out No longer eligi ble based on patient's age to complete this topic MMR Vaccines Aged Out No longer eligi ble based on patient's age to complete this topic Meningococcal ACWY Vaccine Aged Out N o longer eligible based on patient's age to complete this topic Meningococcal B Vaccine Aged Out No l onger eligible based on patient's age to complete this topic RSV Immunization Patients Un klaus 20 months Aged Out No longer eligible b ased on patient's age to complete this topic Varicella Vaccines Aged Out No longer eligible based on patient's age to complete this topic
--- OUTSIDE RECORDS SUMMARY | 2025-01-11 12:47 | XMS_ITS ---
Author Organization Anthony Rivera MD Address [address] [place] [phone] Care Team Providers Care Environmental Services Technician Name Role Phone Anthony Rivera Primary Care Provider Results Component Value Reference Range Notes Complete Blood Count Auto Di ff Reviewed date:07/15/2024 04:22:31 PM Interpretation: Performing Lab:[facility], [address] [place] [phone] Notes/Report: White Blood Count 6.6 4.8-10.8 X10*3/uL [...] NRBC Abs Auto 0.000 0.0-0.012 X10*3/uL Comprehensive [place]. Panel Fa st Reviewed date:07/14/2024 12:50:26 PM Interpretation: Performing Lab:[address] [phone] Notes/Report: Sodium 138 135-145 mmol/L Potassium 3.3 [...] Panel Reviewed date:07/14/2024 12:52:23 PM Interpretation: Performing Lab:[address] [place] [address] Notes/Report: Triglycerides 173 <150 mg/dL Desirable Triglyceride: [...] Random Reviewed date:07/14/2024 03:08:17 PM Interpretation: Performing Lab:[address] [phone] Notes/Report: Creatinine Urine 81.82 Microalbumin Urine 12.0 Microalbum/Creatinine Ratio Ur 14.6 <30 ug/mg cr Albumin/Creatinine Ratio Reference Ranges: Normal: < 30 ug/mg creatinine Microalbuminuria: 30 - 300 ug/mg creatinine Clinical Albuminuria: > 300 ug/mg creatinine Hemoglobin A1c Reviewed date:07/14/2024 12:50:41 PM Interpretation: Performing Lab:[address] [phone] Notes/Report: Hemoglobin A1c % 7.4 <6.0 % [...] average glucose, using the formula of the D5C-Hvbpaks Average Glucose study (ADAG), Diabetes Care, Vol.31,#8, Apr. 2007 UA ClnCatch+Micro w/rflx Cul t Reviewed date:07/15/2024 04:17:30 PM Interpretation: Performing Lab:[facility], [address] [place] [address] Notes/Report: Urine, Clean Catch Color Urine Yellow Appearance Urine Clear PH 6.0 5.0-9.0 Glucose Urine UA Negative Negative mg/dL Urine Blood Negative Negative Specific [place] - Urine 1.015 1.005-1.025 Urine Protein Negative [...] Location Date Provider Diagnosis Anthony Rivera MD [address] [place] [phone] 07/14/2024 Anthony Rivera Hypercholesteremia E 78.00 ; [...] Treatment Next Appt Details Provider Name:Anthony moeller, 01/18/2025 10:00:00 AM, [address] [place] [address], [address], [phone], Provider Name:Anthony moeller, 07/16/2025 07:30:00 AM, [address] [place] [address], [address], [phone], Provider Name:Anthony moeller, 07/23/2025 11:00:00 AM, [address] [place] [address], [address], [place], [place], [phone], Progress Notes * NEAL SYLVESTERDOB:1955 ( 69 yo F)Acc No.[id number]:07/14/2024 Progress Note Patient:NEAL AGARWAL Provider:?Anthony Rivera MD :1955???Age:68 Y???Sex:Female D ate:07/14/2024 Address:[address] [place], [place] [phone] Subjective: * Chief Complaints: * ???1. FASTING LABS. * Medical History:? Objective: * Vitals:? Assessment: * Assessment: 1.?Hypercholesteremia - E78. 00 (Primary)???2.?Vitamin D deficiency - E55.9???3.?Essential hypertension - I10???4.?Type 2 diabetes mellitus without complication, with no history of insulin use - E11.9???5.?Hypokalemia - E87.6??? Plan: * Treatment: 2.?Vitamin D deficiency?LAB: Vitamin D 25-OH Total (Order Cancelled) ?LAB: Complete Blood Count Auto Diff (Collection Date & Time - 07/14/2024 08:00 AM) ?LAB: Comprehensive [place]. Panel Fast (Collection Date & Time - 07/14/2024 08:00 AM) ?LAB: Lipid Panel (Collection Date & Time - 07/14/2024 08:00 AM) ?LAB: Microalbumin, Random (Collection Date & Time - 07/14/2024 08:00 AM) ?LAB: Hemoglobin A1c (Collection Date & Time - 07/14/2024 08:00 AM) ?LAB: UA ClnCatch+Micro w/rflx Cult (Collection Date & Time - 07/14/2024 08:00 AM) 3.?Essential hypertension?LAB: Vitamin D 25-OH Total (Order Cancelled) ?LAB: Complete Blood Count Auto Diff (Collection Date & Time - 07/14/2024 08:00 AM) ?LAB: Comprehensive [place]. Panel Fast (Collection Date & Time - 07/14/2024 08:00 AM) ?LAB: Lipid Panel (Collection Date & Time - 07/14/2024 08:00 AM) ?LAB: Microalbumin, Random (Collection Date & Time 07/14/2024 08:00 AM) ?LAB: Hemoglobin A1c (Collection Date & Time 07/14/2024 08:00 AM) ?LAB: UA ClnCatch+Micro w/rflx Cult (Collection Date & Time - 07/14/2024 08:00 AM) 4.?Type 2 diabetes mellitus without complication, with no history of insulin use?LAB: Vitamin D 25-OH Total (Order Cancelled) ?LAB: Complete Blood Count Auto Diff (Collection Date & Time 07/14/2024 08:00 AM) ?LAB: Comprehensive [place]. Panel Fast (Collection Date & Time - 07/14/2024 08:00 AM) ?LAB: Lipid Panel (Collection Date & Time - 07/14/2024 08:00 AM) ?LAB: Microalbumin, Random (Collection Date & Time 07/14/2024 08:00 AM) ?LAB: Hemoglobin A1c (Collection Date & Time 07/14/2024 08:00 AM) ?LAB: UA ClnCatch+Micro w/rflx Cult (Collection Date & Time 07/14/2024 08:00 AM) 5.?Hypokalemia?LAB: Vitamin D 25-OH Total (Order Cancelled) ?LAB: Complete Blood Count Auto Diff (Collection Date & Time - 07/14/2024 08:00 AM) ?LAB: Comprehensive [place]. Panel Fast (Collection Date & Time - 07/14/2024 08:00 AM) ?LAB: Lipid Panel (Collection Date & Time - 07/14/2024 08:00 AM) ?LAB: Microalbumin, Random (Collection Date & Time - 07/14/2024 08:00 AM) ?LAB: Hemoglobin A1c (Collection Date & Time - 07/14/2024 08:00 AM) ?LAB: UA ClnCatch+Micro w/rflx Cult (Collection Date & Time - 07/14/2024 08:00 AM) * Procedure Codes:?43720 VENIP UNCT, ROUTINE* * * The named appointment provid er may or may not be the originator of this progress note, and it is not deemed complete until electronically signed by the appointment provider. Sign off status: Pending * Provider:?Anthony Rivera MD Date:?1 09/13/2023 Generated for Hill veronica/Valentino/Silvianoitting on:?01/11/2025 12:47 PM EDT
[2025-01-11 12:51] LABS: Estimated Average Glucose 200 mg/dL; Hemoglobin A1C 224.2719 umol/L; Hemoglobin A1c % 8.6 % (<6.0); Total Hemoglobin (HGBA1C) 3183.8335 umol/L
[2025-01-11 13:30] LABS: Alanine Aminotransferase 17 U/L (0-31); Albumin Level 4.1 g/dL (3.5-5.0); Aspartate Amino Transferase 29 U/L (5-31); Bilirubin Direct 0.1 mg/dL (0.0-0.5); Bilirubin Total 0.3 mg/dL (0.0-1.0); Cholesterol 142 mg/dL (<200); Glucose Fasting 209 mg/dL (60-99); HDL Cholesterol 42 mg/dL (>40); LDL Cholesterol Calculated 72 mg/dL (<100); Triglycerides 142 mg/dL (<150)
[2025-01-11 15:18] LABS: Alkaline Phosphatase 68 U/L (39-117)
[2025-01-11 15:43] LABS: Reflex LDLD? No
== END 2025-01-11 12:20 | disposition home or self-care (01) ==
LOC: HO.LNP 12:19
PROVIDERS: Visit Provider Internal Medicine
DX: E78.00 Pure hypercholesterolemia, unspecified (principal); E11.9 Type 2 diabetes mellitus without complications
CPT/HCPCS: 80061; 80076; 82947; 83036

== ENCOUNTER 2025-07-16 10:30 | Outpatient (REF) | payer MEDICARE, SELFPAY ==
[2025-07-16 10:32] LABS: MANUAL DIFF FLAG NO
[2025-07-16 11:33] LABS: Hematocrit 38.7 % (37.0-47.0); Hemoglobin 12.5 g/dl (12.0-16.0); Imm Gran Abs Auto 0.02 X10*3/uL (0.00-0.03); Imm Gran Pct Auto 0.3 % (0.0-0.4); Lymphocytes Absolute Auto 1.8 X10*3/uL (1.2-4.9); Mean Corpuscular HGB Conc 32.3 g/dl (31.0-35.0); Mean Corpuscular Hemoglobin 28.4 pg (27.0-33.0); Mean Corpuscular Volume 88.0 fL (80.0-98.0); NRBC Abs Auto 0.000 X10*3/uL (0.0-0.012); NRBC Pct Auto 0.0 /100WBC (0.0-0.2); Platelet Count 387 X10*3/uL (160-400); Red Blood Count 4.40 X10*6/uL (4.20-5.50); White Blood Count 7.0 X10*3/uL (4.8-10.8)
[2025-07-16 11:51] LABS: Alanine Aminotransferase 17 U/L (0-31); Albumin Level 4.5 g/dL (3.5-5.0); Alkaline Phosphatase 64 U/L (39-117); Anion Gap 14 (12-20); Aspartate Amino Transferase 27 U/L (5-31); Blood Urea Nitrogen 19 mg/dL (9-16); Calcium 9.6 mg/dL (8.4-10.2); Carbon Dioxide 30 mmol/L (22-29); Chloride 98 mmol/L (96-108); Cholesterol 128 mg/dL (<200); Estimated Glomerular Filt Rate > 60; HDL Cholesterol 44 mg/dL (>40); Potassium 3.7 mmol/L (3.3-5.1); Sodium 138 mmol/L (135-145); Total Protein 7.4 g/dL (6.5-8.0); Triglycerides 149 mg/dL (<150)
== END 2025-07-16 10:31 | disposition home or self-care (01) ==
LOC: HO.LNP 10:30
PROVIDERS: Visit Provider Internal Medicine
DX: Z00.00 Encounter for general adult medical examination without abnormal findings (principal); E78.00 Pure hypercholesterolemia, unspecified; E11.9 Type 2 diabetes mellitus without complications; E55.9 Vitamin D deficiency, unspecified
CPT/HCPCS: 80053; 80061; 82306; 83036; 85025

== ENCOUNTER 2025-07-23 13:08 | Outpatient (REF) | payer MEDICARE, SELFPAY ==
--- OUTSIDE RECORDS SUMMARY | 2024-06-11 08:30 | XMS_ITS ---
Author Organization Anthony Rivera MD Address [address] [place] [phone] Care Team Providers Care Metal Miner Name Role Phone Anthony Rivera Primary Care Provider Allergies Allergen (clinical drug ingredient) Drug/Non Drug Allergy documented on EMR Reaction Allergy Type Onset Date Status penicillin G Penicillin G Sodium diarrhea Drug Allergy Active lisinopril Lisinopril cough Drug Allergy Activ e amoxicillin Amoxicillin diarrhea Drug Allergy Act irina REASON FOR VISIT HDF Medications Medication SIG (Take, Route, Frequency, Duration) Notes Start Date End Date Status Atorvastatin Calcium 40 MG TAKE 1 TABLET ONCE DAILY Active metFORMIN HCl 500 MG TAKE 1 TABLET TWICE DAILY WITH MEALS Active Allergy Relief D 10-240 MG 1 tablet as needed Orally Once a day Active Klor-Con M10 10 MEQ TAKE 1 TABLET ONCE DAILY WITH FOOD for 90 Active Vitamin D-3 1000 UNIT 1 capsule Orally O nce a day Active Losartan Potassium-HCTZ 100-25 MG TAKE 1 TABLET ONCE DAILY Active Premarin 0.625 MG/GM Vaginal Not-Taking Combigan 0.2-0.5 % 1 drop into affected eye Ophthalmic Twice a day Active Latanoprost 0.005 % 1 drop into affected eye in the evening Ophthalmic Once a day Active Zantac 150 MG 1 tablet at bedtime Orally Once a day Active Immunizations Vaccine Route Administration Date Status Comme nts Influenza High Dose IM Intramuscular 06/11/2024 Administer ed Encounters Encounter Location Date Provider Diagnosis Anthony Rivera MD [address] [place] [address] [place] [phone] 06/11/2024 Anthony Rivera Encounter for immunization Z23 Assessments Encounter Date Diagnosis (ICD Code) Assessment Notes Treatment Notes Treatment Clinical Notes Section Notes 06/11/2024 Encounter for immunization (ICD-10 - Z23) Plan Of Treatment Next Appt Details Provider Name:Anthony moeller, 12/14/2025 07:15:00 AM, [address] [place] [address], [address] [place] [address], [phone], Provider Name:Anthony moeller, 12/21/2025 10:15:00 AM, [address] [place] [address], [address] [place] [address], [phone], Provider Name:Anthony moeller, 07/26/2026 07:30:00 AM, [address] [place] [address], [address], [phone], Provider Name:Anthony moeller, 08/02/2026 10:30:00 AM, [address] [place] [address], [address], [phone], Progress Notes * Maggi SYLVESTERDOB:1955 ( 69 yo F)Acc No.[id number]:06/11/2024 Progress Note Patient: Maggi WRIGHT Provider: Netta Rivera MD :1955 A ge:68 Y S ex:Female Date:06/11/2024 Address:[address] [place], [place] [phone] Subjective: * Chief Complaints: * 1 . HDF. * Medical History: c olonoscopy 2014; 08/20/17 refuses to have another colonoscopy; 03/03/18 refused colonoscopy COLOGARDNEG 2020, Prediabetes, Prediabetes. * Medications: T aking Latanoprost 0.005 % Solution 1 drop into affected eye in the evening Ophthalmic Once a day , Taking Combigan 0.2-0.5 % Solution 1 drop into affected eye Ophthalmic Twice a day , Taking Zantac 150 MG Tablet 1 tablet at bedtime Orally Once a day , Taking Allergy Relief D 10-240 MG Tablet Extended Release 24 Hour 1 tablet as needed Orally Once a day , Taking Vitamin D-3 1000 UNIT Capsule 1 capsule Orally Once a day , Taking Klor-Con M10 10 MEQ Tablet Extended Release TAKE 1 TABLET ONCE DAILY WITH FOOD , Taking Atorvastatin Calcium 40 MG Tablet TAKE 1 TABLET ONCE DAILY , Taking metFORMIN HCl 500 MG Tablet TAKE 1 TABLET TWICE DAILY WITH MEALS , Taking Losartan Potassium-HCTZ 100-25 MG Tablet TAKE 1 TABLET ONCE DAILY , Not-Taking/PRN Premarin 0.625 MG/GM Cream Vaginal * Allergies: A moxicillin: diarrhea - Side Effects, Penicillin G Sodium: diarrhea - Side Effects, Lisinopril: cough - Side Effects. Objective: * Vitals: Assessment: * Assessment: 1. E ncounter for immunization - Z23 (Primary) Plan: * Treatment: * Immunizations: Influenza High Dose : 0.5 mL (Dose No:1) (Route: Intramuscular) given by Bette Patton , Office Staff on Left Deltoid * Procedure Codes: 9 0662 FLU VACC PRSV FREE INC ANTIG, 95021 IMMUNIZATION ADMIN * * The named appointment provid er may or may not be the originator of this progress note, and it is not deemed complete until electronically signed by the appointment provider. Sign off status: Pending * Provider: Netta Rivera MD Date: Generated for Hill veronica/Valentino/Marcos on: 09/22/2024 01:28 PM EST
--- OUTSIDE RECORDS SUMMARY | 2024-07-14 03:00 | XMS_ITS ---
Author Organization Anthony Rivera MD Address [address] [place] [phone] Care Team Providers Care Outside Energy Sales Representatives Name Role Phone Anthony Rivera Primary Care Provider [phone] Results Component Value Reference Range Notes Complete Blood Count Auto Di ff Reviewed date:07/15/2024 04:22:31 PM Interpretation: Performing Lab:[facility], [address] [place] [id number] Notes/Report: White Blood Count 6.6 4.8-10.8 X10*3/uL Red Blood Count 4.35 4.20-5.50 X10*6/uL Hemoglobin 12.7 12.0-16.0 g/dl Hematocrit 38.5 37.0-47.0 % Mean Corpuscular Volume 88.5 80.0-98.0 fL Mean Corpuscular Hemoglobin 29.2 27.0-33.0 pg Mean Corpuscular HGB Conc 33.0 31.0-35.0 g/dl Red Cell Distribution Width 12.6 11.0-16.0 % Platelet Count 317 160-400 X10*3/uL Mean Platelet Volume 10.0 9.4-12.3 fL Neutrophils Percent Auto 60.7 45-73 % Imm Gran Pct Auto 0.2 0.0-0.4 % Lymphocytes Percent Auto 27.4 20-40 % Monocytes Percent Auto 8.2 2-11 % Eosinophils Percent Auto 2.7 0-4 % Basophils Percent Auto 0.8 0-2 % NRBC Pct Auto 0.0 0.0-0.2 /100WBC Neutrophils Absolute Auto 4.0 2.0-8.3 x10*3/u L Imm Gran Abs Auto 0.01 0.00-0.03 X10*3/uL Lymphocytes Absolute Auto 1.8 1.2-4.9 X10*3/u L Monocytes Absolute Auto 0.5 0.1-1.2 X10*3/uL Eosinophils Absolute Auto 0.2 0.0-0.4 X10*3/u L Basophils Absolute Auto 0.1 0.0-0.2 X10*3/uL NRBC Abs Auto 0.000 0.0-0.012 X10*3/uL Comprehensive [place]. Panel Fa st Reviewed date:07/14/2024 12:50:26 PM Interpretation: Performing Lab:[address] [phone] Notes/Report: Sodium 138 135-145 mmol/L Potassium 3.3 3.3-5.1 mmol/L Chloride 99 96-108 mmol/L Carbon Dioxide 27 22-29 mmol/L Anion Gap 15 12-20 Blood Urea Nitrogen 19 9-16 mg/dL Creatinine 0.78 0.5-1.4 mg/dL Estimated Glomerular Filt Rate > 60 Chronic Kidney Disease: Estimated GFR < 60 mL/min/1.73m2 Severe Kidney Disease: Estimated GFR < 15 mL/min/1.73m2 Glucose Fasting 160 60-99 mg/dL A fasting glucose of 126 mg/dl or greater on more than one occasion is considered diagnostic of diabetes. Calcium 9.9 8.4-10.2 mg/dL Bilirubin Total 0.3 0.0-1.0 mg/dL Aspartate Amino Transferase 29 5-31 U/L Alanine Aminotransferase 17 0-31 U/L Total Protein 7.2 6.5-8.0 g/dL Albumin Level 4.2 3.5-5.0 g/dL Alkaline Phosphatase 70 39-117 U/L Lipid Panel Reviewed date:07/14/2024 12:52:23 PM Interpretation: Performing Lab:[address] [place] [phone] Notes/Report: Triglycerides 173 <150 mg/dL Desirable Triglyceride: less than 150 mg/dL Borderline High Triglyceride 150-199 mg/dL High Triglyceride: 200-499 mg/dL Very High Triglyceride: greater than or equal to 5OO mg/dL Cholesterol 147 <200 mg/dL Desirable Cholesterol: less than 200 mg/dL Borderline High Cholesterol: 200-239 mg/dL High Cholesterol: greater than 239 mg/dL LDL Cholesterol Calculated 72 <100 mg/dL Desirable LDL: less than 100 mg/dL Near Optimal/Above Optimal LDL: 110-129 mg/dL Borderline High LDL: 130-159 mg/dL High LDL: 160-189 mg/dL Very High LDL: greater than or equal to 190 mg/dL HDL Cholesterol 41 >40 mg/dL Desirable HDL: greater than 40 mg/dL Note: This HDL assay may give artificially low results in patients with liver disease. Microalbumin, Random Reviewed date:07/14/2024 03:08:17 PM Interpretation: Performing Lab:[address] [phone] Notes/Report: Creatinine Urine 81.82 Microalbumin Urine 12.0 Microalbum/Creatinine Ratio Ur 14.6 <30 ug/mg cr Albumin/Creatinine Ratio Reference Ranges: Normal: < 30 ug/mg creatinine Microalbuminuria: 30 - 300 ug/mg creatinine Clinical Albuminuria: > 300 ug/mg creatinine Hemoglobin A1c Reviewed date:07/14/2024 12:50:41 PM Interpretation: Performing Lab:[address] [phone] Notes/Report: Hemoglobin A1c % 7.4 <6.0 % Hemoglobin A1C Reference Range Adults: 4.8 - 6.0 % Non diabetic: < 6.0 % Goal: < 7.0 % Additional Action Suggested: > 8.0 % Note: Hemoglobin A1c results are invalid for patients with abnormal amounts of HbF. Blood transfusions may impact the HbA1c concentration in the patient sample. Estimated Average Glucose 166 eAG = Estimated average glucose which is %A1C expressed as average glucose, using the formula of the X2F-[place] Average Glucose study (ADAG), Diabetes Care, Vol.31,#8, Apr. 2007 UA ClnCatch+Micro w/rflx Cul t Reviewed date:07/15/2024 04:17:30 PM Interpretation: Performing Lab:[facility], [address] [place] [phone] Notes/Report: Urine, Clean Catch Color Urine Yellow Appearance Urine Clear PH 6.0 5.0-9.0 Glucose Urine UA Negative Negative mg/dL Urine Blood Negative Negative Specific [place] - Urine 1.015 1.005-1.025 Urine Protein Negative Neg-Trace mg/dL Urine Ketones Negative Negative mg/dL Nitrite Urine Negative Negative Leukocyte Esterase Urine Moderate (2+) Negative RBC Urine 0-2 0-2 /HPF WBC Urine 0-5 0-5 /HPF Squamous Epithelial Cell Urine 3-5 0-2 /HPF Bacteria Urine 1+ None Seen Hyaline Casts Urine 0-2 0-2 /LPF REASON FOR VISIT FASTING LABS Encounters Encounter Location Date Provider Diagnosis Anthony Rivera MD [address] [place] [address] [place] [phone] 07/14/2024 Anthony Rivera Hypercholesteremia E 78.00 ; Vitamin D deficiency E55.9 ; Essential hypertension I10 ; Type 2 diabetes mellitus without complication, with no history of insulin use E11.9 and Hypokalemia E87.6 Assessments Encounter Date Diagnosis (ICD Code) Assessment Notes Treatment Notes Treatment Clinical Notes Section Notes 07/14/2024 Hypercholesteremia (ICD-10 - E78.00) 07/14/2024 Vitamin D deficiency (ICD-10 - E55.9) 07/14/2024 Essential hypertensi on (ICD-10 - I10) 07/14/2024 Type 2 diabetes mellitus without complication, with no history of insulin use (ICD-10 - E11.9) 07/14/2024 Hypokalemia (ICD-10 - E87.6) Plan Of Treatment Next Appt Details Provider Name:Anthony moeller, 12/14/2025 07:15:00 AM, [address] [place] [address], [address], [phone], Provider Name:Anthony moeller, 12/21/2025 10:15:00 AM, [address] [place] [address], [address], [phone], Provider Name:Anthony moeller, 07/26/2026 07:30:00 AM, [address], [address], [place], [place], [phone], Provider Name:Anthony Tapia ier, 08/02/2026 10:30:00 AM, [address] [facility], [address], [place], [place], [phone], Progress Notes * Maggi SYLVESTERDOB:1955 ( 69 yo F)Acc No.[id number]:07/14/2024 Progress Note Patient: Maggi WRIGHT Provider: Netta Rivera MD :1955 A ge:68 Y S ex:Female Date:07/14/2024 Address:[address] [place], [place] [phone] Subjective: * Chief Complaints: * 1 . FASTING LABS. * Medical History: Objective: * Vitals: Assessment: * Assessment: 1. H ypercholesteremia - E78.00 (Primary) 2 . V itamin D deficiency - E55.9? 3. E ssential hypertension - I10 4 . T ype 2 diabetes mellitus without complication, with no history of insulin use - E11.9 5 . H ypokalemia - E87.6 Plan: * Treatment: 2. V itamin D deficiency L AB: Vitamin D 25-OH Total (Order Cancelled) L AB: Complete Blood Count Auto Diff (Collection Date & Time - 07/14/2024 08:00 AM) L AB: Comprehensive [place]. Panel Fast (Collection Date & Time - 07/14/2024 08:00 AM) L AB: Lipid Panel (Collection Date & Time - 07/14/2024 08:00 AM) L AB: Microalbumin, Random (Collection Date & Time - 07/14/2024 08:00 AM) L AB: Hemoglobin A1c (Collection Date & Time - 07/14/2024 08:00 AM) L AB: UA ClnCatch+Micro w/rflx Cult (Collection Date & Time - 07/14/2024 08:00 AM) 3. E ssential hypertension L AB: Vitamin D 25-OH Total (Order Cancelled) L AB: Complete Blood Count Auto Diff (Collection Date & Time - 07/14/2024 08:00 AM) L AB: Comprehensive [place]. Panel Fast (Collection Date & Time - 07/14/2024 08:00 AM) L AB: Lipid Panel (Collection Date & Time - 07/14/2024 08:00 AM) L AB: Microalbumin, Random (Collection Date & Time - 07/14/2024 08:00 AM) L AB: Hemoglobin A1c (Collection Date & Time - 07/14/2024 08:00 AM) L AB: UA ClnCatch+Micro w/rflx Cult (Collection Date & Time - 07/14/2024 08:00 AM) 4. T ype 2 diabetes mellitus without complication, with no history of insulin use L AB: Vitamin D 25-OH Total (Order Cancelled) L AB: Complete Blood Count Auto Diff (Collection Date & Time - 07/14/2024 08:00 AM) L AB: Comprehensive [place]. Panel Fast (Collection Date & Time - 07/14/2024 08:00 AM) L AB: Lipid Panel (Collection Date & Time - 07/14/2024 08:00 AM) L AB: Microalbumin, Random (Collection Date & Time - 07/14/2024 08:00 AM) L AB: Hemoglobin A1c (Collection Date & Time - 07/14/2024 08:00 AM) L AB: UA ClnCatch+Micro w/rflx Cult (Collection Date & Time - 07/14/2024 08:00 AM) 5. H ypokalemia L AB: Vitamin D 25-OH Total (Order Cancelled) L AB: Complete Blood Count Auto Diff (Collection Date & Time - 07/14/2024 08:00 AM) L AB: Comprehensive [place]. Panel Fast (Collection Date & Time - 07/14/2024 08:00 AM) L AB: Lipid Panel (Collection Date & Time - 07/14/2024 08:00 AM) L AB: Microalbumin, Random (Collection Date & Time - 07/14/2024 08:00 AM) L AB: Hemoglobin A1c (Collection Date & Time - 07/14/2024 08:00 AM) L AB: UA ClnCatch+Micro w/rflx Cult (Collection Date & Time - 07/14/2024 08:00 AM) * Procedure Codes: 3 6415 VENIPUNCT, ROUTINE* * * The named appointment provid er may or may not be the originator of this progress note, and it is not deemed complete until electronically signed by the appointment provider. Sign off status: Pending * Provider: Netta Rivera MD Date: 09/13/2023 Generated for Hill veronica/Valentino/Marcos on: 09/22/2024 01:28 PM EST
--- OUTSIDE RECORDS SUMMARY | 2024-07-20 05:30 | XMS_ITS ---
Author Organization Anthony Rivera MD Address [address] [place] [id number] Care Team Providers Care Environmental Health Physician Name Role Phone Anthony Rivera Primary Care Provider [phone] Allergies Allergen (clinical drug ingredient) Drug/Non Drug Allergy documented on EMR Reaction Allergy Type Onset Date Status penicillin G Penicillin G Sodium diarrhea Drug Allergy Active lisinopril Lisinopril cough Drug Allergy Activ e amoxicillin Amoxicillin diarrhea Drug Allergy Act irina REASON FOR VISIT ANNUAL EXAM, c/o right hip pain Medications Medication SIG (Take, Route, Frequency, Duration) Notes Start Date End Date Status Losartan Potassium-HCTZ 100-25 MG TAKE 1 TABLET ONCE DAILY Active Premarin 0.625 MG/GM Vaginal Not-Taking metFORMIN HCl 500 MG TAKE 1 TABLET TWICE DAILY WITH MEALS Active Klor-Con M10 10 MEQ TAKE 1 TABLET ONCE DAILY WITH FOOD for 90 Active Atorvastatin Calcium 40 MG TAKE 1 TABLET ONCE DAILY Active Allergy Relief D 10-240 MG 1 tablet as needed Orally Once a day Active Combigan 0.2-0.5 % 1 drop into affected eye Ophthalmic Twice a day Active Zantac 150 MG 1 tablet at bedtime Orally Once a day Active Latanoprost 0.005 % 1 drop into affected eye in the evening Ophthalmic Once a day Active Social History Tobacco Use: Social History Observation Description Date Details (start date - stop date) Never Smoker NA - NA Tobacco Use/Smoking Question Answer Notes Patient is a nonsmoker Additional Findings: Tobacco Non-User Cu rrent non-smoker, currently using no form of tobacco Alcohol Screen Question Answer Notes Did you have a drink containing alcohol in the p ast year? No Points 0 Interpretation Negative Vital Signs Blood pressure systolic 122 mm Hg 07/20/20 24 Blood pressure diastolic 70 mm Hg 024 Height 62.5 in 07/20/2024 Weight 151 lbs 07/20/2024 BMI 27.18 kg/m2 07/20/2024 weight is up 6 pounds since 01-14-24 Encounters Encounter Location Date Provider Diagnosis Anthony Rivera MD [address] [place], [place] [phone] 07/20/2024 Anthony Rivera Essential hypertension I10 ; Annual physical exam Z00.00 ; Type 2 diabetes mellitus without complication, with no history of insulin use E11.9 ; Vitamin D deficiency E55.9 and Depression screening Z13.31 Assessments Encounter Date Diagnosis (ICD Code) Assessment Notes Treatment Notes Treatment Clinical Notes Section Notes 07/20/2024 Essential hypertension (ICD-10 - I10) bp doing well today, will continue current regiment and will continue to monitor 07/20/2024 Annual physical exam (ICD-10 - Z00.00) labs reviewed and discussed with patient 07/20/2024 Type 2 diabetes mellitus without complication, with no history of insulin use (ICD-10 - E11.9) a1c is going up due to eating poorly, will continue to monitor 07/20/2024 Vitamin D deficiency (ICD-10 - E55.9) is doing well but is going to start vit d since winter is here 07/20/2024 Depression screening (ICD-10 - Z13.31) negative screen Plan Of Treatment Treatment Notes Assessment Notes Essential hypertension bp doing well tod ay, will continue current regiment and will continue to monitor Annual physical exam labs reviewed and d iscussed with patient Type 2 diabetes mellitus wit hout complication, with no history of insulin use a1c is going up due to eating poorly, will continue to monitor Vitamin D deficiency is doing well but i s going to start vit d since winter is here Depression screening negative screen Next Appt Details Follow Up: 6 Months, Reason: dm Provider Name:Anthony moeller, 12/14/2025 07:15:00 AM, [address], [address], [place], [place], [phone], Provider Name:Anthony Tapia ier, 12/21/2025 10:15:00 AM, [address], [address], [place], [phone], Provider Name:Anthony Tapia ier, 07/26/2026 07:30:00 AM, [address], [address], [place], [phone], Provider Name:Anthony Tapia ier, 08/02/2026 10:30:00 AM, [address] [facility] [address], [address], [place], [phone], Progress Notes * MAGGI SYLVESTERDOB:1955 ( 68 yo F)Acc No.[id number]:07/20/2024 Progress Notes Patient: Rafael BEREKETMAGGI Espitia Provider: Netta Rivera MD :1955 A ge:68 Y S ex:Female Date:07/20/2024 Address:[address] [place], [place] [phone] Subjective: * Chief Complaints: * A NNUAL EXAMC/o right hip pain * HPI: D epression Screening: PHQ-9 L ittle interest or pleasure in doing things N ot at all, F eeling down, depressed, or hopeless N ot at all, T rouble falling or staying asleep, or sleeping too much N ot at all, F eeling tired or having little energy N ot at all, P oor appetite or overeating N ot at all, F eeling bad about yourself or that you are a failure, or have let yourself or your family down N ot at all, T rouble concentrating on things, such as reading the newspaper or watching television N ot at all, M oving or speaking so slowly that other people could have noticed; or the opposite, being so fidgety or restless that you have been moving around a lot more than usual N ot at all, T houghts that you would be better off or of hurting yourself in some way N ot at all, T otal Score 0 . C ommunication Needs: Communication Needs D oes the patient have a hearing impairment N o, D oes the patient have a vision impairment? Y es, I f yes, what is the vision impairment? G lasses, D oes the patient have a cognition impairment? N o. F all Risk: History H ave you had any falls with injury in the past year? N o, H ave you had two or more falls in the past year? N o. S AYSE Questions: SDOH Questions I n the past year have you been worried about losing housing? N o, I n the past year have you or any family members you live with been unable to get any of the following when it was really needed? Check all that apply: N one. S ymptom(s): patient is a 68 yo female here for annual visit with review of recent labs and follow up of chronc issues, has some pain in right hip. * ROS: G eneral/Constitutional: Change in appetite d enies. C hills d enies. F ever d enies. O phthalmologic: Blurred vision d enies. D ischarge d enies. P ain d enies. E NT: Decreased hearing d enies. S ore throat d enies.?Swollen glands d enies. E ndocrine: Cold intolerance d enies. E xcessive thirst d enies. H eat intolerance d enies. W eight loss d enies. R espiratory: Cough d enies. S hortness of breath at rest d enies. S hortness of breath with exertion d enies. W heezing d enies. C ardiovascular: Chest pain at rest d enies. C hest pain with exertion?denies. I rregular heartbeat d enies. S hortness of breath d enies. ? G astrointestinal: Abdominal pain d enies. C hange in bowel habits d enies. D iarrhea d enies. N ausea d enies. R ectal bleeding d enies. V omiting d enies . G enitourinary: Blood in urine d enies. D ifficulty urinating d enies. F requent urination d enies. U rinary incontinence D enies. M usculoskeletal: Painful joints d enies. W eakness d enies. ? S kin: Dry skin d enies. I tching d enies. D enies?Mole(s), changes in moles, new moles or any lesions of concern. D enies P hotosensitivity. R billy d enies. N eurologic: Dizziness d enies. F ainting d enies. H eadache?denies. * Medical History: * Surgical History: * Hospitalization/Major Diagno stic Procedure: * Family History: F ather: 48 yrs, diagnosed with Cancer. M other: 93 yrs, diagnosed with Hypertension. 1 sister(s) - healthy. 2 daughter(s) . . Father- Colon Cancer Mother- natural causes, Denies mental health/substance abuse family history, No pertinent family medical history, Denies mental health/substance abuse family history, No pertinent family medical history. * Social History: T obacco Use: T obacco Use/Smoking P atient is a n onsmoker, A dditional Findings: Tobacco Non-User C urrent non-smoker, currently using no form of tobacco. D rugs/Alcohol: A lcohol Screen D id you have a drink containing alcohol in the past year? N o, P oints 0 , I nterpretation N egative. M iscellaneous: C affeine: yes, frequency: 1 tea in am. Children: yes. Community involvements: yes, belongs to alevism group. no Exercise. Housing: owning. Living with: spouse. Marital status: . Occupation: retired. Pets: cats: x2. no Travel outside of the [place]. * Medications: T akingLatanoprost 0.005 % Solution 1 drop into affected eye in the evening Ophthalmic Once a dayCombigan 0.2-0.5 % Solution 1 drop into affected eye Ophthalmic Twice a dayZantac 150 MG Tablet 1 tablet at bedtime Orally Once a dayAllergy Relief D 10-240 MG Tablet Extended Release 24 Hour 1 tablet as needed Orally Once a dayKlor-Con M10 10 MEQ Tablet Extended Release TAKE 1 TABLET ONCE DAILY WITH FOOD Atorvastatin Calcium 40 MG Tablet TAKE 1 TABLET ONCE DAILY metFORMIN HCl 500 MG Tablet TAKE 1 TABLET TWICE DAILY WITH MEALS Losartan Potassium-HCTZ 100-25 MG Tablet TAKE 1 TABLET ONCE DAILY Taking Latanoprost 0.005 % Solution 1 drop into affected eye in the evening Ophthalmic Once a dayTaking Combigan 0.2-0.5 % Solution 1 drop into affected eye Ophthalmic Twice a dayTaking Zantac 150 MG Tablet 1 tablet at bedtime Orally Once a dayTaking Allergy Relief D 10-240 MG Tablet Extended Release 24 Hour 1 tablet as needed Orally Once a dayTaking Klor-Con M10 10 MEQ Tablet Extended Release TAKE 1 TABLET ONCE DAILY WITH FOOD Taking Atorvastatin Calcium 40 MG Tablet TAKE 1 TABLET ONCE DAILY Taking metFORMIN HCl 500 MG Tablet TAKE 1 TABLET TWICE DAILY WITH MEALS Taking Losartan Potassium-HCTZ 100-25 MG Tablet TAKE 1 TABLET ONCE DAILY Not-Taking/PRNPremarin 0.625 MG/GM Cream Vaginal Not-Taking/PRN Premarin 0.625 MG/GM Cream Vaginal DiscontinuedVitamin D-3 1000 UNIT Capsule 1 capsule Orally Once a dayMedication List reviewed and reconciled with the patientDiscontinued Vitamin D-3 1000 UNIT Capsule 1 capsule Orally Once a dayMedication List reviewed and reconciled with the patient * Allergies: A moxicillin: diarrhea - Side EffectsPenicillin G Sodium: diarrhea - Side EffectsLisinopril: cough - Side Effectsyes[Allergies Verified] Objective: * Vitals: H t: 62.5, Wt:151, BMI:27.18, BP:122/70 weight is up 6 pounds since 01-14-24. * P ast Orders: L ab:Comprehensive [employer] Panel Fast (Order Date - 07/14/2024) (Collection Date - 07/14/2024) Value Reference Range Sodium 138 135-145 - mmol/L Bilirubin Total 0.3 0.0-1.0 - mg/dL Aspartate Amino Transferase 29 5-31 - U/L Alanine Aminotransferase 17 0-31 - U/L Total Protein 7.2 6.5-8.0 - g/dL Albumin Level 4.2 3.5-5.0 - g/dL Alkaline Phosphatase 70 39-117 - U/L Potassium 3.3 3.3-5.1 - mmol/L Chloride 99 96-108 - mmol/L Carbon Dioxide 27 22-29 - mmol/L Anion Gap 15 12-20 - Blood Urea Nitrogen 19 H 9-16 - mg/dL Creatinine 0.78 0.5-1.4 - mg/dL Estimated Glomerular Filt Rate > 60 - Glucose Fasting 160 H 60-99 - mg/dL Calcium 9.9 8.4-10.2 - mg/dL L ab:Lipid Panel (Order Date - 07/14/2024) (Collection Date - 07/14/2024) Value Reference Range Triglycerides 173 H <150 - mg/dL Cholesterol 147 <200 - mg/dL LDL Cholesterol Calculated 72 <100 - mg/dL HDL Cholesterol 41 >40 - mg/dL L ab:Hemoglobin A1c (Order Date - 07/14/2024) (Collection Date - 07/14/2024) Value Reference Range Hemoglobin A1c % 7.4 H <6.0 - % Estimated Average Glucose 166 - mg/dL L ab:Microalbumin, Random (Order Date - 07/14/2024) (Collection Date - 07/14/2024) Value Reference Range Creatinine Urine 81.82 - mg/dL Microalbumin Urine 12.0 - mg/L Microalbum Creatinine Ratio Ur 14.6 <30 - ug/ mg cr L ab:UA ClnCatch+Micro w/rflx Cult (Order Date - 07/14/2024) (Collection Date - 07/14/2024) Value Reference Range Color Urine Yellow - Appearance Urine Clear - PH 6.0 5.0-9.0 - Glucose Urine UA Negative Negative - mg/dL Urine Blood Negative Negative - Specific [place] - Urine 1.015 1.005-1.025 - Urine Protein Negative Neg-Trace - mg/dL Urine Ketones Negative Negative - mg/dL Nitrite Urine Negative Negative - Leukocyte Esterase Urine Moderate (2+) A Negative - RBC Urine 0-2 0-2 - /HPF WBC Urine 0-5 0-5 - /HPF Squamous Epithelial Cell Urine 3-5 0-2 - /HP F Bacteria Urine 1+ None Seen - Hyaline Casts Urine 0-2 0-2 - /LPF L ab:Complete Blood Count Auto Diff (Order Date - 07/14/2024) (Collection Date - 07/14/2024) Value Reference Range White Blood Count 6.6 4.8-10.8 - X10*3/uL Red Blood Count 4.35 4.20-5.50 - X10*6/uL Hemoglobin 12.7 12.0-16.0 - g/dl Hematocrit 38.5 37.0-47.0 - % Mean Corpuscular Volume 88.5 80.0-98.0 - fL Mean Corpuscular Hemoglobin 29.2 27.0-33.0 - pg Mean Corpuscular HGB Conc 33.0 31.0-35.0 - g/ dl Red Cell Distribution Width 12.6 11.0-16.0 - % Platelet Count 317 160-400 - X10*3/uL Mean Platelet Volume 10.0 9.4-12.3 - fL Neutrophils Percent Auto 60.7 45-73 - % Imm Gran Pct Auto 0.2 0.0-0.4 - % Lymphocytes Percent Auto 27.4 20-40 - % Monocytes Percent Auto 8.2 2-11 - % Eosinophils Percent Auto 2.7 0-4 - % Basophils Percent Auto 0.8 0-2 - % NRBC Pct Auto 0.0 0.0-0.2 - /100WBC Neutrophils Absolute Auto 4.0 2.0-8.3 - x10* 3/uL Imm Gran Abs Auto 0.01 0.00-0.03 - X10*3/uL Lymphocytes Absolute Auto 1.8 1.2-4.9 - X10* 3/uL Monocytes Absolute Auto 0.5 0.1-1.2 - X10*3/ uL Eosinophils Absolute Auto 0.2 0.0-0.4 - X10* 3/uL Basophils Absolute Auto 0.1 0.0-0.2 - X10*3/ uL NRBC Abs Auto 0.000 0.0-0.012 - X10*3/uL * Examination: G eneral Examination: GENERAL APPEARANCE: w ell developed, well nourished, in no acute distress. HEAD: n ormocephalic, atraumatic. EYES: p upils equal, round, reactive to light and accommodation, sclera non-icteric. EARS: n ormal. ORAL CAVITY: m ucosa moist. THROAT: c lear. NECK/THYROID: n michelle supple, full range of motion, no cervical lymphadenopathy, no bruits. SKIN: w arm and dry, no suspicious lesions. HEART: r egular rate and rhythm, S1, S2 normal, no murmurs.? LUNGS: c lear to auscultation bilaterally. BREASTS: d one by stock shaper. ABDOMEN: s oft, nontender, nondistended, bowel sounds present, normal, no organomegaly , no masses palpable. RECTAL EXAM: d one by stock shaper. FEMALE GENITOURINARY: d one by stock shaper. EXTREMITIES: n o clubbing, cyanosis, or edema. NEUROLOGIC: n onfocal, motor strength normal upper and lower extremities, sensory exam intact. Assessment: * Assessment: 1. A nnual physical exam - Z00.00 (Primary) 2 . E ssential hypertension - I10 3 .?Type 2 diabetes mellitus without complication, with no history of insulin use - E11.9 4 .?Vitamin D deficiency - E55.9 5 . D epression screening - Z13.31 Plan: * Treatment: 2. E ssential hypertension Notes: bp doing well today, will continue current regiment and will continue to monitor 3. T ype 2 diabetes mellitus without complication, with no history of insulin use Notes: a1c is going up due to eating poorly, will continue to monitor 4. V itamin D deficiency Notes: is doing well but is going to start vit d since winter is here 5. D epression screening Notes: negative screen * Procedure Codes: * Follow Up: 6 Months (Reason: dm) * * Sign off status: Completed true * Provider: Netta Rivera MD Date: 09/19/2023 Generated for Hill veronica/Valentino/Silvianoitting on: 09/22/2024 01:28 PM EST History and Physical Notes * HPI (History of Present Illness) Category Sub-Category Detail Notes Category Not es Symptom(s) patient is a 68 yo female here for annual visit with review of recent labs and follow up of chronc issues, has some pain in right hip Depression Screening PHQ-9 Little inte rest or pleasure in doing things: Not at all Feeling down, depressed, or hopeless: No t at all Trouble falling or staying asleep, or sl eeping too much: Not at all Feeling tired or having little energy: N ot at all Poor appetite or overeating: Not at all Feeling bad about yourself o r that you are a failure, or have let yourself or your family down: Not at all Trouble concentrating on thi ngs, such as reading the newspaper or watching television: Not at all Moving or speaking so slowly that other people could have noticed; or the opposite, being so fidgety or restless that you have been moving around a lot more than usual: Not at all Thoughts that you would be b marisabel off or of hurting yourself in some way: Not at all Total Score: 0 SDOH Questions SDOH Questions In the past year have you been worried about losing housing?: No In the past year have you or any family members you live with been unable to get any of the following when it was really needed? Check all that apply:: None Fall Risk History Have you had any falls with injury i n the past year?: No Have you had two or more falls in the year?: No Communication Needs Communication Needs Does the patient have a hearing impairment: No Does the patient have a vision impairmen t?: Yes If yes, what is the vision impairment?: Glasses Does the patient have a cognition impair ment?: No Examination Category Sub-Category Detail Notes Category Not es General Examination GENERAL APPEARANCE: well dev eloped, well nourished, in no acute distress HEAD: normocephalic, atrau matic EYES: pupils equal, round, reactive to light and accommodation, sclera non-icteric EARS: normal THROAT: clear NECK/THYROID: neck supple, full ra nge of motion, no cervical lymphadenopathy, no bruits HEART: regular rate and rhy thm, S1, S2 normal, no murmurs LUNGS: clear to auscultatio n bilaterally ABDOMEN: soft, nontender, non distended, bowel sounds present, normal, no organomegaly , no masses palpable NEUROLOGIC: nonfocal, motor stre ngth normal upper and lower extremities, sensory exam intact SKIN: warm and dry, no michael picious lesions EXTREMITIES: no clubbing, cyanosi s, or edema BREASTS: done by stock shaper RECTAL EXAM: done by stock shaper FEMALE GENITOURINARY: done by stock shaper ORAL CAVITY: mucosa moist
--- OUTSIDE RECORDS SUMMARY | 2025-01-11 02:45 | XMS_ITS ---
Author Organization Anthony Rivera MD Address [address] [place], [place] [phone] Care Team Providers Care Psychology Teacher Name Role Phone Anthony Rivera Primary Care Provider Results Component Value Reference Range Notes Liver Panel Reviewed date:01/11/2025 05:12:07 PM Interpretation: Performing Lab:[facility], [address] [place] [phone] Notes/Report: Bilirubin Total 0.3 0.0-1.0 mg/dL Bilirubin Direct 0.1 0.0-0.5 mg/dL Aspartate Amino Transferase 29 5-31 U/L Alanine Aminotransferase 17 0-31 U/L Total Protein 7.0 6.5-8.0 g/dL Albumin Level 4.1 3.5-5.0 g/dL Alkaline Phosphatase 68 39-117 U/L Glucose Fasting Reviewed date:01/11/2025 05:11:50 PM Interpretation: Performing Lab:[facility], [address] [place] [phone] Notes/Report: Glucose Fasting 209 60-99 mg/dL A fasting glucose of 126 mg/dl or greater on more than one occasion is considered diagnostic of diabetes. Lipid Panel with Reflex Reviewed date:01/11/2025 05:11:41 PM Interpretation: Performing Lab:[facility], [address] [place] [phone] Notes/Report: Triglycerides 142 <150 mg/dL Desirable Triglyceride: less than 150 mg/dL Borderline High Triglyceride 150-199 mg/dL High Triglyceride: 200-499 mg/dL Very High Triglyceride: greater than or equal to 5OO mg/dL Cholesterol 142 <200 mg/dL Desirable Cholesterol: less than 200 mg/dL Borderline High Cholesterol: 200-239 mg/dL High Cholesterol: greater than 239 mg/dL LDL Cholesterol Calculated 72 <100 mg/dL Desirable LDL: less than 100 mg/dL Near Optimal/Above Optimal LDL: 110-129 mg/dL Borderline High LDL: 130-159 mg/dL High LDL: 160-189 mg/dL Very High LDL: greater than or equal to 190 mg/dL HDL Cholesterol 42 >40 mg/dL Desirable HDL: greater than 40 mg/dL Note: This HDL assay may give artificially low results in patients with liver disease. Hemoglobin A1c Reviewed date:01/11/2025 03:02:02 PM Interpretation: Performing Lab:[facility], [address] [place] [phone] Notes/Report: Hemoglobin A1c % 8.6 <6.0 % Hemoglobin A1C Reference Range Adults: 4.8 - 6.0 % Non diabetic: < 6.0 % Goal: < 7.0 % Additional Action Suggested: > 8.0 % Note: Hemoglobin A1c results are invalid for patients with abnormal amounts of HbF. Blood transfusions may impact the HbA1c concentration in the patient sample. Estimated Average Glucose 200 eAG = Estimated average glucose which is %A1C expressed as average glucose, using the formula of the X7K-Awjceak Average Glucose study (ADAG), Diabetes Care, Vol.31,#8, Apr. 2007 REASON FOR VISIT FASTING LIPIDS Encounters Encounter Location Date Provider Diagnosis Anthony Rivera MD [address] [place] [address] Drive [address] [place], [place] [id number] 01/11/2025 Anthony Rivera Hypercholesteremia E 78.00 and Type 2 diabetes mellitus without complication, with no history of insulin use E11.9 Assessments Encounter Date Diagnosis (ICD Code) Assessment Notes Treatment Notes Treatment Clinical Notes Section Notes 01/11/2025 Hypercholesteremia (ICD-10 - E78.00) 01/11/2025 Type 2 diabetes mellitus without complication, with no history of insulin use (ICD-10 - E11.9) Plan Of Treatment Next Appt Details Provider Name:Anthony Tapia ier, 12/14/2025 07:15:00 AM, [address], Suite [facility], [place], [place], [phone], Provider Name:Anthony Tapia ier, 12/21/2025 10:15:00 AM, [address], Suite [facility], [place], [place], [phone], Provider Name:Anthony Tapia ier, 07/26/2026 07:30:00 AM, [address], Suite [facility], [place], [place], [phone], Provider Name:Anthony Tapia ier, 08/02/2026 10:30:00 AM, [address] [facility], Suite [facility], [place], [place], [phone], Progress Notes * Maggi SYLVESTERDOB:1955 ( 69 yo F)Acc No.[id number]:01/11/2025 Progress Note Patient: Maggi WRIGHT Provider: Netta Rivera MD :1955 A ge:69 Y S ex:Female Date:01/11/2025 Address:[address] [place], [place] [phone] Subjective: * Chief Complaints: * 1 . FASTING LIPIDS. * Medical History: Objective: * Vitals: Assessment: * Assessment: 1. H ypercholesteremia - E78.00 (Primary) 2 . T ype 2 diabetes mellitus without complication, with no history of insulin use - E11.9 Plan: * Treatment: 2. T ype 2 diabetes mellitus without complication, with no history of insulin use L AB: Liver Panel (Collection Date & Time - 01/11/2025 07:45 AM) L AB: Glucose Fasting (Collection Date & Time - 01/11/2025 07:45 AM) L AB: Lipid Panel with Reflex (Collection Date & Time - 01/11/2025 07:45 AM) L AB: Hemoglobin A1c (Collection Date & Time - 01/11/2025 07:45 AM) * Procedure Codes: 3 6415 VENIPUNCT, ROUTINE* * * The named appointment provid er may or may not be the originator of this progress note, and it is not deemed complete until electronically signed by the appointment provider. Sign off status: Pending * Provider: Netta Rivera MD Date: 0 01/11/2025 Generated for Hill veronica/Valentino/Marcos on: 1 09/22/2024 01:29 PM EST
--- OUTSIDE RECORDS SUMMARY | 2025-01-18 05:00 | XMS_ITS ---
Author Organization Anthony Rivera MD Address [address] [place] [phone] Care Team Providers Care Waterproof Bag Sewer Name Role Phone Anthony Rivera Primary Care Provider Allergies Allergen (clinical drug ingredient) Drug/Non Drug Allergy documented on EMR Reaction Allergy Type Onset Date Status penicillin G Penicillin G Sodium diarrhea Drug Allergy Active lisinopril Lisinopril cough Drug Allergy Activ e amoxicillin Amoxicillin diarrhea Drug Allergy Act irina Results Component Value Reference Range Notes Glucose, finger stick Reviewed date:01/18/2025 10:03:56 AM Interpretation: Performing Lab: Notes/Report: Value 225 Reason For Referral Reason Right hip arthritis Diagnosis 1 Hip arthritis (M19.9 0) Referral Organization Anthony Rivera MD Referring Provider First Name Anthony Referring Provider Last Name Nicole Referring Provider Speciality Internal M edicine Referred Provider Loki Franco Referred Provider Specialty Orthopedic S urgery General Notes Leida Jha 0 01/18/2025 12:01:16 PM > info faxed, Leida Jha 02/08/2025 08:50:34 AM >info faxed again Referral Priority Routine Referral Appointment Date 04/26/2025 REASON FOR VISIT 6 MO F/U DM Medications Medication SIG (Take, Route, Frequency, Duration) Notes Start Date End Date Status Klor-Con M10 10 MEQ TAKE 1 TABLET ONCE DAILY WITH FOOD for 90 Active Losartan Potassium-HCTZ 100-25 MG TAKE 1 TABLET ONCE DAILY for 90 Active Premarin 0.625 MG/GM Vaginal Not-Taking Zantac 150 MG 1 tablet at bedtime Orally Once a day Active Allergy Relief D 10-240 MG 1 tablet as needed Orally Once a day Active metFORMIN HCl 500 MG TAKE 2 TABLET WITH MEALS Orally twice a day for 90 days Active Latanoprost 0.005 % 1 drop into affected eye in the evening Ophthalmic Once a day Active Atorvastatin Calcium 40 MG TAKE 1 TABLET ONCE DAILY Active Combigan 0.2-0.5 % 1 drop into affected eye Ophthalmic Twice a day Active Problems Problem Type SNOMED Code ICD Code Onset Dates Problem Status W/U Status Risk Notes Problem Arthritis of hip (27867746) Hip arthritis (M19.90) Active confirmed Vital Signs Blood pressure systolic 136 mm Hg 01/19/20 25 Blood pressure diastolic 86 mm Hg 025 Height 62.5 in 01/18/2025 Encounters Encounter Location Date Provider Diagnosis Anthony Rivera MD [address] [place] [address] [place] [phone] 01/18/2025 Anthony Rivera Type 2 diabetes fab itus without complication, with no history of insulin use E11.9 ; Hip arthritis M19.90 and Hypercholesteremia E78.00 Assessments Encounter Date Diagnosis (ICD Code) Assessment Notes Treatment Notes Treatment Clinical Notes Section Notes 01/18/2025 Type 2 diabetes mellitus without complication, with no history of insulin use (ICD-10 - E11.9) running a bit high, advised on diet and exercise 01/18/2025 Hip arthritis (ICD-1 0 - M19.90) referral to dr franco/ x-ray order not given to patient. she will have them done at [facility] 01/18/2025 Hypercholesteremia (ICD-10 - E78.00) stable, will continue current regiment Plan Of Treatment Medication Medication Name Sig Start Date Stop Date Notes metFORMIN HCl 500 MG TAKE 2 TABLET WITH MEALS Orally twice a day for 90 days Atorvastatin Calcium 40 MG TAKE 1 TABLET ONCE DAILY Treatment Notes Assessment Notes Type 2 diabetes mellitus wit hout complication, with no history of insulin use running a bit high, advised on diet and exercise Hip arthritis referral to dr daiana watts/ x-ray order not given to patient. she will have them done at [facility] Hypercholesteremia stable, will continu e current regiment Pending Test Test Name Order Date XR hip RT min 2V 01/18/2025 Referrals Referral Date Details 01/18/2025 01/18/2025, Right hi p arthritis, [facility] Next Appt Details Follow Up: 3 Months, Reason: Provider Name:Anthony Weiner Willie ier, 12/14/2025 07:15:00 AM, [address] [place] [address], Suite [facility], [place], [place], [phone], Provider Name:Anthony Weiner Willie ier, 12/21/2025 10:15:00 AM, [address] [place] [address], Suite [facility], [place], [place], [phone], Provider Name:Anthony Weiner Willie ier, 07/26/2026 07:30:00 AM, [address] [place] [address], Suite [facility], [place], [place], [phone], Provider Name:Anthony Weiner Wlilie ier, 08/02/2026 10:30:00 AM, [address] [place] [address], Suite [facility], [place], [place], [phone], Progress Notes * Maggi SYLVESTERDOB:1955 ( 69 yo F)Acc No.[id number]:01/18/2025 Progress Notes Patient: Maggi WRIGHT Provider: Netta Rivera MD :1955 A ge:69 Y S ex:Female Date:01/18/2025 Address:[address] [place], [place] [phone] Subjective: * Chief Complaints: * 6 MO F/U DM * HPI: S ymptom(s): patient is a 69 yo female here for 6 month follow up visit/ has pain in hip and knee. has a bad knee. no tingling in foot. * ROS: G eneral/Constitutional: Denies C hills. D enies F atigue. D enies F ever. D enies H eadache. E NT: Denies S ore throat. E ndocrine: Denies D ifficulty sleeping. D enies D izziness.?Denies E xcessive sweating. D enies E xcessive thirst. D enies F requent urination. R espiratory: Denies C ough. D enies S hortness of breath at rest. D enies S hortness of breath with exertion. G astrointestinal: Denies D iarrhea. D enies H eartburn. ? * Medical History: * Surgical History: * Hospitalization/Major Diagno stic Procedure: * Medications: T akingLatanoprost 0.005 % Solution 1 drop into affected eye in the evening Ophthalmic Once a day Combigan 0.2-0.5 % Solution 1 drop into affected eye Ophthalmic Twice a day Zantac 150 MG Tablet 1 tablet at bedtime Orally Once a day Allergy Relief D 10-240 MG Tablet Extended Release 24 Hour 1 tablet as needed Orally Once a day Atorvastatin Calcium 40 MG Tablet TAKE 1 TABLET ONCE DAILY Klor-Con M10 10 MEQ Tablet Extended Release TAKE 1 TABLET ONCE DAILY WITH FOOD Losartan Potassium-HCTZ 100- 25 MG Tablet TAKE 1 TABLET ONCE DAILY metFORMIN HCl 500 MG Tablet TAKE 1 TABLET TWICE DAILY WITH MEALS Taking Latanoprost 0.005 % Solution 1 drop into affected eye in the evening Ophthalmic Once a day Taking Combigan 0.2-0.5 % Solution 1 drop into affected eye Ophthalmic Twice a day Taking Zantac 150 MG Tablet 1 tablet at bedtime Orally Once a day Taking Allergy Relief D 10-240 MG Tablet Extended Release 24 Hour 1 tablet as needed Orally Once a day Taking Atorvastatin Calcium 40 MG Tablet TAKE 1 TABLET ONCE DAILY Taking Klor-Con M10 10 MEQ Tablet Extended Release TAKE 1 TABLET ONCE DAILY WITH FOOD Taking Losartan Potassium-HCTZ 100-25 MG Tablet TAKE 1 TABLET ONCE DAILY Taking metFORMIN HCl 500 MG Tablet TAKE 1 TABLET TWICE DAILY WITH MEALS Not-Taking/PRNPremarin 0.625 MG/GM Cream Vaginal Medication List reviewed and reconciled with the patientNot-Taking/PRN Premarin 0.625 MG/GM Cream Vaginal Medication List reviewed and reconciled with the patient * Allergies: A moxicillin: diarrhea - Side EffectsPenicillin G Sodium: diarrhea - Side EffectsLisinopril: cough - Side Effectsyes[Allergies Verified] Objective: * Vitals: H t: 62.5, BP:136/86. * P ast Orders: L ab:Liver Panel (Order Date - 01/11/2025) (Collection Date & Time - 01/11/2025 07:45 AM) Value Reference Range Bilirubin Total 0.3 0.0-1.0 - mg/dL Bilirubin Direct 0.1 0.0-0.5 - mg/dL Aspartate Amino Transferase 29 5-31 - U/L Alanine Aminotransferase 17 0-31 - U/L Total Protein 7.0 6.5-8.0 - g/dL Albumin Level 4.1 3.5-5.0 - g/dL Alkaline Phosphatase 68 39-117 - U/L L ab:Glucose Fasting (Order Date - 01/11/2025) (Collection Date & Time - 01/11/2025 07:45 AM) Value Reference Range Glucose Fasting 209 H 60-99 - mg/dL L ab:Lipid Panel with Reflex (Order Date - 01/11/2025) (Collection Date & Time - 01/11/2025 07:45 AM) Value Reference Range Triglycerides 142 <150 - mg/dL Cholesterol 142 <200 - mg/dL LDL Cholesterol Calculated 72 <100 - mg/dL HDL Cholesterol 42 >40 - mg/dL L ab:Hemoglobin A1c (Order Date - 01/11/2025) (Collection Date & Time - 01/11/2025 07:45 AM) Value Reference Range Hemoglobin A1c % 8.6 H <6.0 - % Estimated Average Glucose 200 - mg/dL * Examination: G eneral Examination: GENERAL APPEARANCE: a lert, well hydrated, in no distress.? HEAD: n ormocephalic. SKIN: g ood turgor. HEART: r egular rate and rhythm, no murmurs, rubs, gallops.? LUNGS: n o wheezes, rales, rhonchi, good air movement, clear to auscultation bilaterally. Assessment: * Assessment: 1. T ype 2 diabetes mellitus without complication, with no history of insulin use - E11.9 (Primary) 2 . H ip arthritis - M19.90 3 . H ypercholesteremia - E78.00 Plan: * Treatment: Value Reference Range V alue 225 Notes: running a bit high, advised on diet and exercise??2.?Hip arthritis?Imaging: XR hip RT min 2V Notes: referral to dr franco/ x-ray order not given to patient. she will have them done at [facility] ? Referral To:Loki Franco??Orthopedic Surgery ?Reason:Right hip arthritis 3.?Hypercholesteremia? Continue Atorvastatin Calcium Tablet, 40 MG, TAKE 1 TABLET ONCE DAILY.?? Notes: stable, will continue current regiment?? * Procedure Codes: 8 2947 ASSAY, GLUCOSE, BLOOD QUANT, Modifiers: QW * Follow Up: 3 Months * * Sign off status: Completed true * Provider: Netta Rivera MD Date: 0 01/18/2025 Generated for Hill veronica/Valentino/Marcos on: 1 09/22/2024 01:28 PM EST History and Physical Notes * HPI (History of Present Illness) Category Sub-Category Detail Notes Category Not es Symptom(s) patient is a 69 yo female here for 6 month follow up visit/ has pain in hip and knee. has a bad knee. no tingling in foot. Examination Category Sub-Category Detail Notes Category Not es General Examination GENERAL APPEARANCE: alert, w ell hydrated, in no distress HEAD: normocephalic HEART: regular rate and rhy thm, no murmurs, rubs, gallops LUNGS: no wheezes, rales, r honchi, good air movement, clear to auscultation bilaterally SKIN: good turgor Consultation Request Notes Referral Date Referring Provider Referred Provider Not es 01/18/2025 Anthony Rivera Alexander Righ t hip arthritis
--- OUTSIDE RECORDS SUMMARY | 2025-04-27 05:15 | XMS_ITS ---
Author Organization Anthony Rivera MD Address [address] [place] [phone] Care Team Providers Care Procurement Accountant Name Role Phone Anthony Rivera Primary Care Provider Allergies Allergen (clinical drug ingredient) Drug/Non Drug Allergy documented on EMR Reaction Allergy Type Onset Date Status penicillin G Penicillin G Sodium diarrhea Drug Allergy Active lisinopril Lisinopril cough Drug Allergy Activ e amoxicillin Amoxicillin diarrhea Drug Allergy Act irina Results Component Value Reference Range Notes Hemoglobin A1c Reviewed date:04/27/2025 10:16:48 AM Interpretation: Performing Lab: Notes/Report: Hemoglobin A1c 7.3 Glucose, finger stick Reviewed date:04/27/2025 10:11:09 AM Interpretation: Performing Lab: Notes/Report: Value 180 REASON FOR VISIT 3 month Medications Medication SIG (Take, Route, Frequency, Duration) Notes Start Date End Date Status Atorvastatin Calcium 40 MG TAKE 1 TABLET ONCE DAILY Active Klor-Con M10 10 MEQ TAKE 1 TABLET ONCE DAILY WITH FOOD for 90 Active Allergy Relief D 10-240 MG 1 tablet as needed Orally Once a day Active Premarin 0.625 MG/GM Vaginal Not-Taking metFORMIN HCl 500 MG TAKE 2 TABLET WITH MEALS Orally twice a day Active Losartan Potassium-HCTZ 100-25 MG TAKE 1 TABLET ONCE DAILY Active Combigan 0.2-0.5 % 1 drop into affected eye Ophthalmic Twice a day Active Zantac 150 MG 1 tablet at bedtime Orally Once a day Active Latanoprost 0.005 % 1 drop into affected eye in the evening Ophthalmic Once a day Active Vital Signs Blood pressure systolic 126 mm Hg 04/27/20 25 Blood pressure diastolic 70 mm Hg 025 Height 62.5 in 04/27/2025 Weight 141 lbs 04/27/2025 BMI 25.38 kg/m2 04/27/2025 weight is down 10 pounds [facility], [place] 07-20-24 Encounters Encounter Location Date Provider Diagnosis Anthony Rivera MD [address] [place] [phone] 04/27/2025 Anthony Rivera Type 2 diabetes mellitus without complication, with no history of insulin use E11.9 and Essential hypertension I10 Assessments Encounter Date Diagnosis (ICD Code) Assessment Notes Treatment Notes Treatment Clinical Notes Section Notes 04/27/2025 Type 2 diabetes mellitus without complication, with no history of insulin use (ICD-10 - E11.9) stable, will continue current regiment 04/27/2025 Essential hypertension (ICD-10 - I10) stable, will continue current regiment and will continue to monitor Plan Of Treatment Medication Medication Name Sig Start Date Stop Date Notes metFORMIN HCl 500 MG TAKE 2 TABLET WITH MEALS Orally twice a day Losartan Potassium-HCTZ 100- 25 MG TAKE 1 TABLET ONCE DAILY Treatment Notes Assessment Notes Type 2 diabetes mellitus wit hout complication, with no history of insulin use stable, will continue current regiment Essential hypertension stable, will cont inue current regiment and will continue to monitor Next Appt Details Follow Up: 3 Months, Reason: Provider Name:Anthony moeller, 12/14/2025 07:15:00 AM, [address] [place] [address], [address], [phone], Provider Name:Anthony moeller, 12/21/2025 10:15:00 AM, [address] [place] [address], [address], [phone], Provider Name:Anthony moeller, 07/26/2026 07:30:00 AM, [address] [place] [address], [phone], Provider Name:Anthony moeller, 08/02/2026 10:30:00 AM, [address] [facility], [address], [place], [place], [phone], Progress Notes * Maggi SYLVESTERDOB:1955 ( 69 yo F)Acc No.[id number]:04/27/2025 Progress Notes Patient: Maggi WRIGHT Provider: Netta Rivera MD :1955 A ge:69 Y S ex:Female Date:04/27/2025 Address:[address] [place], [place] [phone] Subjective: * Chief Complaints: * 3 month * HPI: S ymptom(s): patient is a 69 yo female here for 3 month follow up visit/ doing well. * ROS: G eneral/Constitutional: Denies C hills. [...] G astrointestinal: Denies D iarrhea. D enies N ausea. * Medical History: * Surgical History: * [...] tablet as needed Orally Once a day Klor-Con M10 10 MEQ Tablet Extended Release TAKE 1 TABLET ONCE DAILY WITH FOOD Losartan Potassium-HCTZ 100-25 MG Tablet TAKE 1 TABLET ONCE DAILY metFORMIN HCl 500 MG Tablet TAKE 2 TABLET WITH MEALS Orally twice a day Atorvastatin Calcium 40 MG Tablet [...] as needed Orally Once a day Taking Klor-Con M10 10 MEQ Tablet Extended Release TAKE 1 TABLET ONCE DAILY WITH FOOD Taking Losartan Potassium-HCTZ 100-25 MG Tablet TAKE 1 TABLET ONCE DAILY Taking metFORMIN HCl 500 MG Tablet TAKE 2 TABLET WITH MEALS Orally twice a day Taking Atorvastatin Calcium 40 MG Tablet TAKE 1 TABLET ONCE DAILY Not-Taking/PRNPremarin 0.625 MG/GM Cream Vaginal Medication List reviewed and reconciled with the patientNot-Taking/PRN Premarin 0.625 MG/GM Cream Vaginal Medication List reviewed and reconciled with the patient * Allergies: A moxicillin: diarrhea - Side EffectsPenicillin G Sodium: diarrhea - Side EffectsLisinopril: cough - Side Effectsyes[Allergies Verified] Objective: * Vitals: H t: 62.5, Wt: 141, BMI:25.38, BP:126/70, Wt-k.96. weight is down 10 pounds since 07-20-24. * Examination: G eneral Examination: GENERAL APPEARANCE: a lert, well hydrated, in no distress.? HEAD: n ormocephalic. SKIN: g ood turgor. HEART: n o murmurs, rubs, gallops, regular rate and rhythm.? LUNGS: n o wheezes, rales, rhonchi, good air movement, clear to auscultation bilaterally. Assessment: * Assessment: 1. T ype 2 diabetes mellitus without complication, with no history of insulin use - E11.9 (Primary) 2 . E ssential hypertension - I10 Plan: * Treatment: Value Reference Range H emoglobin A1c 7.3 ?LAB: Glucose, finger stick (Collection Date & Time - 04/27/2025)* Value Reference Range V alue 180 Notes: stable, will continue current regiment??2.?Essential hypertension? Continue Losartan Potassium-HCTZ Tablet, 100-25 MG, TAKE 1 TABLET ONCE DAILY.?? Notes: stable, will continue current regiment and will continue to monitor?? * Procedure Codes: 8 2947 ASSAY, GLUCOSE, BLOOD QUANT, Modifiers: QW 91133 GLYCATED HEMOGLOBIN TEST, Modifiers: QW * Follow Up: 3 Months * * Sign off status: Completed true * Provider: Netta Rivera MD Date: 0 04/27/2025 Generated for Ainsleyi ng/Valentino/eTransmitting on: 1 09/22/2024 01:29 PM EST History and Physical Notes * HPI (History of Present Illness) Category Sub-Category Detail Notes Category Not es Symptom(s) patient is a 69 yo female here for 3 month follow up visit/ doing well Examination Category Sub-Category Detail Notes Category Not es General Examination GENERAL APPEARANCE: alert, w ell hydrated, in no distress HEAD: normocephalic HEART: no murmurs, rubs, ga llops, regular rate and rhythm LUNGS: no wheezes, rales, r honchi, good air movement, clear to auscultation bilaterally SKIN: good turgor
--- OUTSIDE RECORDS SUMMARY | 2025-07-16 02:30 | XMS_ITS ---
Author Organization Anthony Rivera MD Address [address] [place] [id number] Care Team Providers Care Manager Welding Name Role Phone Anthony Rivera Primary Care Provider Results Component Value Reference Range Notes Complete Blood Count Auto Di ff Reviewed date:07/16/2025 12:51:04 PM Interpretation: Performing Lab:[facility], [address] [place] [phone] Notes/Report: White Blood Count 7.0 4.8-10.8 X10*3/uL Red Blood Count 4.40 4.20-5.50 X10*6/uL Hemoglobin 12.5 12.0-16.0 g/dl Hematocrit 38.7 37.0-47.0 % Mean Corpuscular Volume 88.0 80.0-98.0 fL Mean Corpuscular Hemoglobin 28.4 27.0-33.0 pg Mean Corpuscular HGB Conc 32.3 31.0-35.0 g/dl Red Cell Distribution Width 13.3 11.0-16.0 % Platelet Count 387 160-400 X10*3/uL Mean Platelet Volume 9.7 9.4-12.3 fL Neutrophils Percent Auto 64.1 45-73 % Imm Gran Pct Auto 0.3 0.0-0.4 % Lymphocytes Percent Auto 25.6 20-40 % Monocytes Percent Auto 7.7 2-11 % Eosinophils Percent Auto 1.7 0-4 % Basophils Percent Auto 0.6 0-2 % NRBC Pct Auto 0.0 0.0-0.2 /100WBC Neutrophils Absolute Auto 4.5 2.0-8.3 x10*3/u L Imm Gran Abs Auto 0.02 0.00-0.03 X10*3/uL Lymphocytes Absolute Auto 1.8 1.2-4.9 X10*3/u L Monocytes Absolute Auto 0.5 0.1-1.2 X10*3/uL Eosinophils Absolute Auto 0.1 0.0-0.4 X10*3/u L Basophils Absolute Auto 0.0 0.0-0.2 X10*3/uL NRBC Abs Auto 0.000 0.0-0.012 X10*3/uL Lipid Panel Reviewed date:07/16/2025 12:28:58 PM Interpretation: Performing Lab:[address] [phone] Notes/Report: Triglycerides 149 <150 mg/dL Desirable Triglyceride: less than 150 mg/dL Borderline High Triglyceride 150-199 mg/dL High Triglyceride: 200-499 mg/dL Very High Triglyceride: greater than or equal to 5OO mg/dL Cholesterol 128 <200 mg/dL Desirable Cholesterol: less than 200 mg/dL Borderline High Cholesterol: 200-239 mg/dL High Cholesterol: greater than 239 mg/dL LDL Cholesterol Calculated 55 <100 mg/dL Desirable LDL: less than 100 mg/dL Near Optimal/Above Optimal LDL: 110-129 mg/dL Borderline High LDL: 130-159 mg/dL High LDL: 160-189 mg/dL Very High LDL: greater than or equal to 190 mg/dL HDL Cholesterol 44 >40 mg/dL Desirable HDL: greater than 40 mg/dL Note: This HDL assay may give artificially low results in patients with liver disease. Vitamin D 25-OH Total Reviewed date:07/16/2025 12:29:14 PM Interpretation: Performing Lab:[address] [phone] Notes/Report: Vitamin D 25-OH Total 29.1 >30 ng/mL Health Based Reference Values* < 20 ng/mL Deficient 20-30 ng/mL Insufficient > 30 ng/mL Sufficient *Kiara APONTE. N Engl J Med. 2007;357:266-280 There is no well-established upper level of normal vitamin D levels. Some laboratories use 50 ng/mL as an upper limit of normal. However, toxicity is patient-dependent and may occur at any level. Careful correlation with the patient's presentation is necessary and, if there is concern for vitamin D toxicity, treatment should be considered irrespective of the serum level. Care must be taken in interpreting Vitamin D results from different laboratories and methodologies. Published data demonstrated that results from patients undergoing hemodialysis may show a negative bias when tested with various automated 25-OH vitamin D assays when compared to LC-MS/MS. When testing samples from patients whose predominant form of Vitamin D is Vitamin D2, such as patients receiving Vitamin D2 supplementation, results that are subtherapeutic should be confirmed with another method such as LC-MS/MS. Hemoglobin A1c Reviewed date:07/16/2025 12:29:05 PM Interpretation: Performing Lab:[facility], [address] [place] [phone] Notes/Report: Hemoglobin A1c % 6.5 <6.0 % Hemoglobin A1C Reference Range Adults: 4.8 - 6.0 % Non diabetic: < 6.0 % Goal: < 7.0 % Additional Action Suggested: > 8.0 % Note: Hemoglobin A1c results are invalid for patients with abnormal amounts of HbF. Blood transfusions may impact the HbA1c concentration in the patient sample. Estimated Average Glucose 140 eAG = Estimated average glucose which is %A1C expressed as average glucose, using the formula of the B4Y-Lnpsihy Average Glucose study (ADAG), Diabetes Care, Vol.31,#8, Apr. 2007 REASON FOR VISIT FASTING LABS Immunizations Vaccine Route Administration Date Status Comme nts Fluarix Quadrivalent - 150 IM Intramuscular 07/16/2025 Adm inistered Encounters Encounter Location Date Provider Diagnosis Anthony Rivera MD [address] [place] [address] [address] [place], [place] [phone] 07/16/2025 Anthony Rivera Blood tests for rout ine general physical examination Z00.00 ; Encounter for administration of vaccine Z23 ; Hypercholesteremia E78.00 ; Vitamin D deficiency E55.9 and Type 2 diabetes mellitus without complication, with no history of insulin use E11.9 Assessments Encounter Date Diagnosis (ICD Code) Assessment Notes Treatment Notes Treatment Clinical Notes Section Notes 07/16/2025 Blood tests for routine general physical examination (ICD-10 - Z00.00) 07/16/2025 Encounter for administration of vaccine (ICD-10 - Z23) 07/16/2025 Hypercholesteremia (ICD-10 - E78.00) 07/16/2025 Vitamin D deficiency (ICD-10 - E55.9) 07/16/2025 Type 2 diabetes mellitus without complication, with no history of insulin use (ICD-10 - E11.9) Plan Of Treatment Pending Test Test Name Order Date Comprehensive [place]. Panel Fast Microalbumin, Random 07/16/2025 UA ClnCatch+Micro w/rflx Cult 07/16/2025 Next Appt Details Provider Name:Anthony moeller, 12/14/2025 07:15:00 AM, [address] [place] [address], [address], [phone], Provider Name:Anthony moeller, 12/21/2025 10:15:00 AM, [address] [place] [address], [address], [phone], Provider Name:Anthony moeller, 07/26/2026 07:30:00 AM, [address] [place] [address], [address], [phone], Provider Name:Anthony moeller, 08/02/2026 10:30:00 AM, [address] [place] [address], [address], [phone], Progress Notes * Maggi SYLVESTERDOB:1955 ( 69 yo F)Acc No.[id number]:07/16/2025 Progress Note Patient: Maggi WRIGHT Provider: Netta Rivera MD :1955 A ge:69 Y S ex:Female Date:07/16/2025 Address:[address] [place] [address] Subjective: * Chief Complaints: * 1 . FASTING LABS. * Medical History: Objective: * Vitals: Assessment: * Assessment: 1. E ncounter for administration of vaccine - Z23 (Primary) 2 . B lood tests for routine general physical examination - Z00.00 3 . H ypercholesteremia - E78.00 4 . V itamin D deficiency - E55.9 5 . T ype 2 diabetes mellitus without complication, with no history of insulin use - E11.9 Plan: * Treatment: 2. H ypercholesteremia L AB: Comprehensive [place]. Panel Fast L AB: Microalbumin, Random L AB: UA ClnCatch+Micro w/rflx Cult L AB: Complete Blood Count Auto Diff (Collection Date & Time - 07/16/2025 07:30 AM) L AB: Lipid Panel (Collection Date & Time - 07/16/2025 07:30 AM) L AB: Vitamin D 25-OH Total (Collection Date & Time - 07/16/2025 07:30 AM) L AB: Hemoglobin A1c (Collection Date & Time - 07/16/2025 07:30 AM) 3. V itamin D deficiency L AB: Comprehensive [place]. Panel Fast L AB: Microalbumin, Random L AB: UA ClnCatch+Micro w/rflx Cult L AB: Complete Blood Count Auto Diff (Collection Date & Time - 07/16/2025 07:30 AM) L AB: Lipid Panel (Collection Date & Time - 07/16/2025 07:30 AM) L AB: Vitamin D 25-OH Total (Collection Date & Time - 07/16/2025 07:30 AM) L AB: Hemoglobin A1c (Collection Date & Time - 07/16/2025 07:30 AM) 4. T ype 2 diabetes mellitus without complication, with no history of insulin use L AB: Comprehensive [place]. Panel Fast L AB: Microalbumin, Random L AB: UA ClnCatch+Micro w/rflx Cult L AB: Complete Blood Count Auto Diff (Collection Date & Time - 07/16/2025 07:30 AM) L AB: Lipid Panel (Collection Date & Time - 07/16/2025 07:30 AM) L AB: Vitamin D 25-OH Total (Collection Date & Time - 07/16/2025 07:30 AM) L AB: Hemoglobin A1c (Collection Date & Time - 07/16/2025 07:30 AM) * Immunizations: Fluarix Quadrivalent - 150 : 0.5 mL (Dose No:1) (Route: Intramuscular) given by Bette Patton , Office Staff on Left Deltoid * Procedure Codes: 3 6415 VENIPUNCT, ROUTINE*, 63121 FLU VACCINE NO PRESERV 3 & >, 10353 IMMUNIZATION ADMIN * * The named appointment provid er may or may not be the originator of this progress note, and it is not deemed complete until electronically signed by the appointment provider. Sign off status: Pending * Provider: Netta Rivera MD Date: 09/15/2024 Generated for Hill veronica/Valentino/Silvianoitting on: 09/22/2024 01:28 PM EST
--- OUTSIDE RECORDS SUMMARY | 2025-07-23 06:00 | XMS_ITS ---
Author Organization Anthony Rivera MD Address [address] [place] [phone] Care Team Providers Care Line Puller Name Role Phone Anthony Rivera Primary Care Provider [phone] Allergies Allergen (clinical drug ingredient) Drug/Non Drug Allergy documented on EMR Reaction Allergy Type Onset Date Status penicillin G Penicillin G Sodium diarrhea Drug Allergy Active lisinopril Lisinopril cough Drug Allergy Activ e amoxicillin Amoxicillin diarrhea Drug Allergy Act irina REASON FOR VISIT ANNUAL EXAM Medications Medication SIG (Take, Route, Frequency, Duration) Notes Start Date End Date Status Klor-Con M10 10 MEQ TAKE 1 TABLET ONCE DAILY WITH FOOD for 90 Active Combigan 0.2-0.5 % 1 drop into affected eye Ophthalmic Twice a day Active Zantac 150 MG 1 tablet at bedtime Orally Once a day Active Latanoprost 0.005 % 1 drop into affected eye in the evening Ophthalmic Once a day Active Allergy Relief D 10-240 MG 1 tablet as needed Orally Once a day Active Atorvastatin Calcium 40 MG TAKE 1 TABLET ONCE DAILY Active Premarin 0.625 MG/GM Vaginal Not-Taking Losartan Potassium-HCTZ 100-25 MG TAKE 1 TABLET ONCE DAILY Active metFORMIN HCl 500 MG TAKE 2 TABLET WITH MEALS Orally twice a day Active Social History Tobacco Use: [...] Interpretation Negative Vital Signs Blood pressure systolic 110 mm Hg 07/23/20 25 Blood pressure diastolic 66 mm Hg 025 Height 62.5 in 07/23/2025 Weight 138 lbs 07/23/2025 BMI 24.84 kg/m2 07/23/2025 weight is down 3 pounds [facility] 04-29-25 Encounters Encounter Location Date Provider Diagnosis Anthony Rivera MD [address] [place], [place] [phone] 07/23/2025 Anthony Rivera Adult general medica l examination Z00.00 ; Type 2 diabetes mellitus without complication, with no history of insulin use E11.9 ; Hypercholesteremia E78.00 ; Essential hypertension I10 ; Vitamin D deficiency E55.9 ; Hip arthritis M19.90 and Depression screen Z13.31 Assessments Encounter Date Diagnosis (ICD Code) Assessment Notes Treatment Notes Treatment Clinical Notes Section Notes 07/23/2025 Adult general medica l examination (ICD-10 - Z00.00) labs reviewed and discussed with patient 07/23/2025 Type 2 diabetes mellitus without complication, with no history of insulin use (ICD-10 - E11.9) a1c is normal, will continue curent regiment 07/23/2025 Hypercholesteremia (ICD-10 - E78.00) well controlled, will continue curent regiment 07/23/2025 Essential hypertensi on (ICD-10 - I10) well controlledd, will continue current regiment 07/23/2025 Vitamin D deficiency (ICD-10 - E55.9) borderline, will contnue to monitor 07/23/2025 Hip arthritis (ICD-1 0 - M19.90) going for surgery next months 07/23/2025 Depression screen (ICD-10 - Z13.31) negative screen Plan Of Treatment Treatment Notes Assessment Notes Adult general medical examination labs r eviewed and discussed with patient Type 2 diabetes mellitus wit hout complication, with no history of insulin use a1c is normal, will continue curent regiment Hypercholesteremia well controlled, kerri l continue curent regiment Essential hypertension well controlledd, will continue current regiment Vitamin D deficiency borderline, will co ntnue to monitor Hip arthritis going for surgery ne xt months Depression screen negative screen Pending Test Test Name Order Date Microalbumin, Random 07/23/2025 UA ClnCatch+Micro w/rflx Cult 07/23/2025 Next Appt Details Follow Up: 6 Months, Reason: Provider Name:Anthony Tapia ier, 12/14/2025 07:15:00 AM, [address] [place] [address], [address] [place] [address], [phone], Provider Name:Anthony Tapia ier, 12/21/2025 10:15:00 AM, [address] [place] [address], [address], [phone], Provider Name:Anthony Tapia ier, 07/26/2026 07:30:00 AM, [address] [place] [address], [address], [phone], Provider Name:Anthony Tapia ier, 08/02/2026 10:30:00 AM, [address] [place] [address], [address], [phone], Progress Notes * Maggi SYLVESTERDOB:1955 ( 69 yo F)Acc No.[id number]:07/23/2025 Progress Notes Patient: Maggi WRIGHT Provider: Netta Rivera MD :1955 A ge:69 Y S ex:Female Date:07/23/2025 Address:[address] [place], [place] [phone] Subjective: * Chief Complaints: * 1 . ANNUAL EXAM. * HPI: S ymptom(s): patient is a 69yo female here for annual visit with review of recentlabs and follow up of chronic isues. D epression Screening: PHQ-9 L ittle interest [...] at all, T otal Score 0 . I nterpretation and Intervention D epression Screening Findings N egative, F ollow-Up for Depression : review of PHQ-9 found negative result, no follow-up needed. C ommunication Needs: Communication Needs D oes [...] needed? Check all that apply: N one. * ROS: G eneral/Constitutional: Change in appetite [...] d enies. H eadache?denies. * Medical History: c olonoscopy 2014; 08/20/17 refuses to have another colonoscopy; 03/03/18 refused colonoscopy COLOGARDNEG 2020 cologard neg 2023, Prediabetes, Prediabetes. * Family History: F ather: 48 yrs, [...] Children: yes. Community involvements: yes, belongs to [employer]. Exercise: no. Housing: owning. Living with: spouse. Marital status: . Occupation: retired. Pets: cats: x2. * Medications: T aking Latanoprost 0.005 % [...] needed Orally Once a day , Taking Klor-Con M10 10 MEQ Tablet Extended Release TAKE 1 TABLET ONCE DAILY WITH FOOD , Taking Atorvastatin Calcium 40 MG Tablet TAKE 1 TABLET ONCE DAILY , Taking Losartan Potassium-HCTZ 100-25 MG Tablet TAKE 1 TABLET ONCE DAILY , Taking metFORMIN HCl 500 MG Tablet TAKE 2 TABLET WITH MEALS Orally twice a day , Not-Taking/PRN Premarin 0.625 MG/GM Cream Vaginal , Medication List reviewed and reconciled with the patient * Allergies: A moxicillin: diarrhea - Side Effects, Penicillin G Sodium: diarrhea - Side Effects, Lisinopril: cough - Side Effects. Objective: * Vitals: H t: 62.5, Wt: 138, BMI:24.84, BP:110/66, Wt-k.6. weight is down 3 pounds since 04-29-25. * P ast Orders: L ab:Complete Blood Count Auto Diff (Order Date - 07/16/2025) (Collection Date & Time - 07/16/2025 07:30 AM) Value Reference Range White Blood Count 7.0 4.8-10.8 - X10*3/uL Red Blood Count 4.40 4.20-5.50 - X10*6/uL Hemoglobin 12.5 12.0-16.0 - g/dl Hematocrit 38.7 37.0-47.0 - % Mean Corpuscular Volume 88.0 80.0-98.0 - fL Mean Corpuscular Hemoglobin 28.4 27.0-33.0 - pg Mean Corpuscular HGB Conc 32.3 31.0-35.0 - g/ dl Red Cell Distribution Width 13.3 11.0-16.0 - % Platelet Count 387 160-400 - X10*3/uL Mean Platelet Volume 9.7 9.4-12.3 - fL Neutrophils Percent Auto 64.1 45-73 - % Imm Gran Pct Auto 0.3 0.0-0.4 - % Lymphocytes Percent Auto 25.6 20-40 - % Monocytes Percent Auto 7.7 2-11 - % Eosinophils Percent Auto 1.7 0-4 - % Basophils Percent Auto 0.6 0-2 - % NRBC Pct Auto 0.0 0.0-0.2 - /100WBC Neutrophils Absolute Auto 4.5 2.0-8.3 - x10* 3/uL Imm Gran Abs Auto 0.02 0.00-0.03 - X10*3/uL Lymphocytes Absolute Auto 1.8 1.2-4.9 - X10* 3/uL Monocytes Absolute Auto 0.5 0.1-1.2 - X10*3/ uL Eosinophils Absolute Auto 0.1 0.0-0.4 - X10* 3/uL Basophils Absolute Auto 0.0 0.0-0.2 - X10*3/ uL NRBC Abs Auto 0.000 0.0-0.012 - X10*3/uL L ab:Lipid Panel (Order Date - 07/16/2025) (Collection Date & Time - 07/16/2025 07:30 AM) Value Reference Range Triglycerides 149 <150 - mg/dL Cholesterol 128 <200 - mg/dL LDL Cholesterol Calculated 55 <100 - mg/dL HDL Cholesterol 44 >40 - mg/dL L ab:Vitamin D 25-OH Total (Order Date - 07/16/2025) (Collection Date & Time - 07/16/2025 07:30 AM) Value Reference Range Vitamin D 25-OH Total 29.1 L >30 - ng/mL L ab:Hemoglobin A1c (Order Date - 07/16/2025) (Collection Date & Time - 07/16/2025 07:30 AM) Value Reference Range Hemoglobin A1c % 6.5 H <6.0 - % Estimated Average Glucose 140 - mg/dL L ab:Comprehensive Met. Panel (Order Date - 07/16/2025) (Collection Date & Time - 07/16/2025 07:30 AM) Value Reference Range Sodium 138 135-145 - mmol/L Bilirubin Total 0.3 0.0-1.0 - mg/dL Aspartate Amino Transferase 27 5-31 - U/L Alanine Aminotransferase 17 0-31 - U/L Total Protein 7.4 6.5-8.0 - g/dL Albumin Level 4.5 3.5-5.0 - g/dL Alkaline Phosphatase 64 39-117 - U/L Potassium 3.7 3.3-5.1 - mmol/L Chloride 98 96-108 - mmol/L Carbon Dioxide 30 H 22-29 - mmol/L Anion Gap 14 12-20 - Blood Urea Nitrogen 19 H 9-16 - mg/dL Creatinine 0.75 0.5-1.4 - mg/dL Estimated Glomerular Filt Rate > 60 - Glucose Random 135 H 60-115 - mg/dL Calcium 9.6 8.4-10.2 - mg/dL * Examination: G eneral Examination: [...] to auscultation bilaterally. BREASTS: d one by operations boardman. ABDOMEN: s oft, nontender, nondistended, bowel sounds present, normal, no organomegaly , no masses palpable. RECTAL EXAM: d one by operations boardman. FEMALE GENITOURINARY: d one by operations boardman. EXTREMITIES: n o clubbing, cyanosis, or edema. NEUROLOGIC: n onfocal, motor strength normal upper and lower extremities, sensory exam intact. Assessment: * Assessment: 1. A dult general medical examination - Z00.00 (Primary) 2 . T ype 2 diabetes mellitus without complication, with no history of insulin use - E11.9 3 . H ypercholesteremia - E78.00 4 . E ssential hypertension - I10 5 . Vitamin D deficiency - E55.9 6 . H ip arthritis - M19.90 7 . D epression screen - Z13.31 Plan: * Treatment: 2. T ype 2 diabetes mellitus without complication, with no history of insulin use L AB: Microalbumin, Random L AB: UA ClnCatch+Micro w/rflx Cult Notes: a1c is normal, will continue curent regiment 3. H ypercholesteremia Notes: well controlled, will continue curent regiment 4. E ssential hypertension Notes: well controlledd, will continue current regiment 5. V itamin D deficiency Notes: borderline, will contnue to monitor 6. H ip arthritis Notes: going for surgery next months 7. D epression screen Notes: negative screen * Preventive Medicine: Counseling: C are goal follow-up plan: C ounseling for abnormal BMI provided?Yes, A rigoberto Normal BMI Follow-up G iving encouragement to exercise. Diabetes Care Plan: P atient Lifestyle Goals N eeds to maintain diet control.?Treatment Goals A 1C< 7. B arriers N o specific barriers, doing well. E xpected Outcome m aintaining stable blood sugar levels within a target range. * Follow Up: 6 Months * * The named appointment provid er may or may not be the originator of this progress note, and it is not deemed complete until electronically signed by the appointment provider. Sign off status: Pending * Provider: Netta Rivera MD Date: 09/22/2024 Generated for Hill veronica/Valentino/Edmarsmitting on: 09/22/2024 01:29 PM EST History and Physical Notes * HPI (History of Present Illness) Category Sub-Category Detail Notes Category Not es Symptom(s) patient is a 69 yo female here for annual visit with review of recentlabs and follow up of chronic isues Depression Screening PHQ-9 Little inte rest or [...] way: Not at all Total Score: 0 Interpretation and Intervention Depression Avery luke Findings: Negative Follow-Up for Depression: : review of PH Q-9 found negative result, no follow-up needed SDOH Questions SDOH Questions In the past [...] cyanosi s, or edema BREASTS: done by operations boardman RECTAL EXAM: done by operations boardman FEMALE GENITOURINARY: done by operations boardman ORAL CAVITY: mucosa moist
--- OUTSIDE RECORDS SUMMARY | 2025-07-23 13:29 | XMS_ITS | Clinical Summary ---
Author Organization [facility] ity Address [address] [place] [address] Care Team Providers Care Toy Assembler Wood Name Role Phone Unavailable Primary Care Provider [...] 11/26/2003 Zoster Vaccines (1 of 2) 11/26/2003 Depression Screening 09/02/2024 COVID-19 Vaccine (1 - 2024-2 6 season) 2025 Influenza Vaccine (#1) 2025 RSV Immunization Adult Patie nts (1 [...]
--- OUTSIDE RECORDS SUMMARY | 2025-07-23 13:29 | XMS_ITS | Patient Health Record ---
Author Organization Anthony Rivera MD Address [address] [place] [phone] Care Team Providers Care Behavioral Health Technician Name Role Phone Anthony Rivera Primary [...] Interpretation: Performing Lab: Notes/Report: Hemoglobin A1c 7.3 Liver Panel Reviewed date:01/11/2025 05:12:07 PM Interpretation: Performing Lab:[facility], [address] [place] [phone] Notes/Report: Bilirubin Total 0.3 0.0-1.0 mg/dL Bilirubin Direct 0.1 0.0-0.5 mg/dL Aspartate Amino Transferase 29 5-31 U/L Alanine Aminotransferase 17 0-31 U/L Total Protein 7.0 6.5-8.0 g/dL Albumin Level 4.1 3.5-5.0 g/dL Alkaline Phosphatase 68 39-117 U/L Glucose Fasting Reviewed date:01/11/2025 05:11:50 PM Interpretation: Performing Lab:[facility], [address] [place] [phone] Notes/Report: Glucose Fasting 209 60-99 mg/dL A fasting glucose of 126 mg/dl or greater on more than one occasion is considered diagnostic of diabetes. Lipid Panel with Reflex Reviewed date:01/11/2025 05:11:41 PM Interpretation: Performing Lab:[facility], [address] [place] [phone] Notes/Report: Triglycerides 142 <150 mg/dL Desirable Triglyceride: [...] A1c Reviewed date:01/11/2025 03:02:02 PM Interpretation: Performing Lab:[facility], [address] [place] [phone] Notes/Report: Hemoglobin A1c % 8.6 <6.0 % [...] average glucose, using the formula of the B8R-Eowqcxa Average Glucose study (ADAG), Diabetes Care, Vol.31,#8, Apr. 2007 Complete Blood Count Auto Di ff Reviewed date:07/16/2025 12:51:04 PM Interpretation: Performing Lab:[facility], [address] [place] [phone] Notes/Report: White Blood Count 7.0 4.8-10.8 X10*3/uL [...] Panel Reviewed date:07/16/2025 12:28:58 PM Interpretation: Performing Lab:[facility], [address] [place] [phone] Notes/Report: Triglycerides 149 <150 mg/dL Desirable Triglyceride: [...] Total Reviewed date:07/16/2025 12:29:14 PM Interpretation: Performing Lab:[facility], [address] [place] [phone] Notes/Report: Vitamin D 25-OH Total 29.1 >30 [...] A1c Reviewed date:07/16/2025 12:29:05 PM Interpretation: Performing Lab:[facility], [address] [place] [phone] Notes/Report: Hemoglobin A1c % 6.5 <6.0 % [...] average glucose, using the formula of the U0A-Eobhkqj Average Glucose study (ADAG), Diabetes Care, Vol.31,#8, Apr. 2007 Glucose, finger stick Reviewed date:01/18/2025 10:03:56 AM Interpretation: Performing Lab: Notes/Report: Value 225 Glucose, finger stick Reviewed date:04/27/2025 10:11:09 AM Interpretation: Performing Lab: Notes/Report: Value 180 Hold Gold Reviewed date:01/11/2025 12:26:43 PM Interpretation: Performing Lab:[facility], [address] [place] [phone] Notes/Report: Hold Gold See Note Specimen held untested for 24 hours; Call to request Chemistry testing. Comprehensive Met. Panel Reviewed date:07/16/2025 12:46:15 PM Interpretation: Performing Lab:[facility], [address] [place] [phone] Notes/Report: Sodium 138 135-145 mmol/L Potassium 3.7 3.3-5.1 mmol/L Chloride 98 96-108 mmol/L Carbon Dioxide 30 22-29 mmol/L Anion Gap 14 12-20 Blood Urea Nitrogen 19 9-16 mg/dL Creatinine 0.75 0.5-1.4 mg/dL Estimated Glomerular Filt Rate > 60 Chronic Kidney Disease: Estimated GFR < 60 mL/min/1.73m2 Severe Kidney Disease: Estimated GFR < 15 mL/min/1.73m2 Glucose Random 135 60-115 mg/dL Calcium 9.6 8.4-10.2 mg/dL Bilirubin Total 0.3 0.0-1.0 mg/dL Aspartate Amino Transferase 27 5-31 U/L Alanine Aminotransferase 17 0-31 U/L Total Protein 7.4 6.5-8.0 g/dL Albumin Level 4.5 3.5-5.0 g/dL Alkaline Phosphatase 64 39-117 U/L Hold Gold Reviewed date:07/16/2025 12:27:07 PM Interpretation: Performing Lab:[facility], [address] [place] [phone] Notes/Report: Hold Gold See Note Specimen held untested for 24 hours; Call to request Chemistry testing. Reason For Referral Reason Right hip arthritis Diagnosis 1 Hip arthritis (M19.9 0) Referral Organization Anthony Rivera MD Referring Provider First Name Anthony Referring Provider Last Name Nicole Referring Provider Speciality Internal M edicine Referred Provider Loki Franco Referred Provider Specialty Orthopedic [facility] General Notes YudelkaJessicaLeida 0 01/18/2025 12:01:16 PM > info faxed, Leida Jha 02/08/2025 08:50:34 AM >info faxed again Referral Priority Routine Referral Appointment Date 04/26/2025 Medications Medication SIG (Take, Route, Frequency, Duration) [...] WITH MEALS Orally twice a day Active Combigan 0.2-0.5 % 1 drop into affected eye Ophthalmic Twice a day Active Zantac 150 MG 1 tablet at bedtime Orally Once a day Active Latanoprost 0.005 % 1 drop into affected eye in the evening Ophthalmic Once a day Active Allergy Relief D 10-240 MG 1 tablet as needed Orally Once a day Active Immunizations Vaccine [...] IM Intramuscular 06/11/2024 Administer ed Fluarix Quadrivalent - 150 IM Intramuscular 07/16/2025 Adm inistered Fluarix Quadrivalent Unknown 11/07/2018 Refused PPSV23 (Pnemovax) [...] Problem Status W/U Status Risk Notes Problem 98861439 Hypokalemia (E87.6) Active confirmed Problem Vitamin D deficiency (68561851) Vitamin D deficiency (E55.9) Active confirmed Problem Arthritis of hip (05365056) Hip arthritis (M19.90) Active confirmed Problem Perimenopausal disorder (011272799) Other specified menopausal and perimenopausal disorders (N95.8) Active confirmed Problem 66586644 Essential hypertension (I10) Active confirmed Problem 29665314 Hypercholesterem ia (E78.00) Active confirmed Problem 984588127 Type 2 diabetes mellitus without complication, with no history of insulin use (E11.9) Active confirmed Vital Signs Blood pressure diastolic 66 mm Hg 07/23/2025 [place] ght is down 3 pounds since 04-29-25 Height 62.5 in 07/23/2025 weight is down 3 pounds since 04-29-25 Blood pressure systolic 110 mm Hg 07/23/2025 weig ht is down 3 pounds since 04-29-25 Weight 138 lbs 07/23/2025 weight is down 3 pounds since 04-29-25 BMI 24.84 kg/m2 07/23/2025 weight is down 3 pounds since 04-29-25 Encounters Encounter Location Date Provider Diagnosis Anthony Rivera MD [address] [place] [id number] 01/11/2025 nAthony Rivera Hypercholesteremia E 78.00 and Type 2 diabetes mellitus without complication, with no history of insulin use E11.9 Anthony Rivera MD [address] [place] [id number] 07/16/2025 Anthony Rivera Blood tests for rout ine general physical examination Z00.00 ; Encounter for administration of vaccine Z23 ; Hypercholesteremia E78.00 ; Vitamin D deficiency E55.9 and Type 2 diabetes mellitus without complication, with no history of insulin use E11.9 Anthony Rivera MD [address] [place] [address] Drive [address] [place] [id number] 07/23/2025 Anthony Rivera Adult general medica l examination Z00.00 ; Type 2 diabetes mellitus without complication, with no history of insulin use E11.9 ; Hypercholesteremia E78.00 ; Essential hypertension I10 ; Vitamin D deficiency E55.9 ; Hip arthritis M19.90 and Depression screen Z13.31 Anthony Rivera MD [address] [place] [address] Drive [address] [place] [id number] 01/18/2025 Anthony Rivera Type 2 diabetes fab itus without complication, with no history of insulin use E11.9 ; Hip arthritis M19.90 and Hypercholesteremia E78.00 Anthony Rivera MD [address] [place] [address] Drive [address] [place] [id number] 04/27/2025 Anthony Rivera Type 2 diabetes fab itus without complication, with no history of insulin use E11.9 and Essential hypertension I10 Assessments Encounter Date Diagnosis (ICD Code) Assessment Notes Treatment Notes Treatment Clinical Notes Section Notes 01/11/2025 Hypercholesteremia (ICD-10 - E78.00) 07/16/2025 Blood tests for routine general physical examination (ICD-10 - Z00.00) 07/16/2025 Encounter for administration of vaccine (ICD-10 - Z23) 07/23/2025 Adult general medica l examination (ICD-10 - Z00.00) labs reviewed and discussed with patient 07/23/2025 Type 2 diabetes mellitus without complication, with no history of insulin use (ICD-10 - E11.9) a1c is normal, will continue curent regiment 01/18/2025 Type 2 diabetes mellitus without complication, with no history of insulin use (ICD-10 - E11.9) running a bit high, advised on diet and exercise 01/18/2025 Hip arthritis (ICD-1 0 - M19.90) referral to dr franco/ x-ray order not given to patient. she will have them done at [facility] 04/27/2025 Type 2 diabetes mellitus without complication, with no history of insulin use (ICD-10 - E11.9) stable, will continue current regiment 01/11/2025 Type 2 diabetes mellitus without complication, with no history of insulin use (ICD-10 - E11.9) 07/16/2025 Hypercholesteremia (ICD-10 - E78.00) 07/23/2025 Hypercholesteremia (ICD-10 - E78.00) well controlled, will continue curent regiment 01/18/2025 Hypercholesteremia (ICD-10 - E78.00) stable, will continue current regiment 04/27/2025 Essential hypertensi on (ICD-10 - I10) stable, will continue current regiment and will continue to monitor 07/16/2025 Vitamin D deficiency (ICD-10 - E55.9) 07/23/2025 Essential hypertensi on (ICD-10 - I10) well controlledd, will continue current regiment 07/16/2025 Type 2 diabetes mellitus without complication, with no history of insulin use (ICD-10 - E11.9) 07/23/2025 Vitamin D deficiency (ICD-10 - E55.9) borderline, will contnue to monitor 07/23/2025 Hip arthritis (ICD-1 0 - M19.90) going for surgery next months 07/23/2025 Depression screen (ICD-10 - Z13.31) negative screen Plan Of Treatment Pending Test Test Name Order Date Comprehensive [place]. Panel Fast Microalbumin, Random 07/16/2025 Microalbumin, Random 07/23/2025 XR hip RT min 2V 01/18/2025 UA ClnCatch+Micro w/rflx Cult 07/23/2025 UA ClnCatch+Micro w/rflx Cult 07/16/2025 Next Appt Details Provider Name:Anthony moeller, 12/14/2025 07:15:00 AM, [address] [place] [address], [address], [phone], Provider Name:Anthony moeller, 12/21/2025 10:15:00 AM, [address] [place] [address], [address] [place], [phone], Provider Name:Anthony Tapia ier, 07/26/2026 07:30:00 AM, [address] [facility], [address], [place], [phone], Provider Name:Anthony Tapia ier, 08/02/2026 10:30:00 AM, [address] [place] [address], [address], [place], [phone], Insurance Providers Payer Name Payer Address Payer Phone Subscriber Number Group Number Insured Name Patient Relationship to Insured Coverage Start Date Coverage End Date [employer] [facility] [address] [place], [place] [phone] [id number] Maggi Sylvester Self - patient is the insured MEDICARE [employer] [address] [place] [address] [id number] Maggi Sylvester Self - patient is the insured Medical (General) History Medical History History ICD Code colonoscopy 2014; 08/20/17 r efuses to have another colonoscopy; 03/03/18 refused colonoscopy COLOGARDNEG 2020 cologard neg 2023 Prediabetes R73.03 Prediabetes
[2025-07-23 13:30] LABS: Appearance Urine Clear; Glucose Urine UA 250 mg/dL (Negative); PH 6.0 (5.0-9.0); Specific Gravity - Urine >= 1.030 (1.005-1.025)
[2025-07-23 14:44] LABS: Microalbum/Creatinine Ratio Ur 5.3 ug/mg cr (<30)
== END 2025-07-23 13:09 | disposition home or self-care (01) ==
LOC: HO.LNP 13:08
PROVIDERS: Visit Provider Internal Medicine
DX: Z00.00 Encounter for general adult medical examination without abnormal findings (principal); E11.9 Type 2 diabetes mellitus without complications
CPT/HCPCS: 81001; 82043; 82570